=== PATIENT | female | born 1965 | race Caucasian/White ===

== ENCOUNTER 2017-04-05 14:33 | Inpatient (IN) ==
[2017-04-05] MEDS ORDERED: AMMONIA AROMATIC INH ONE (14:51)
[2017-04-05] MEDS ORDERED: AMMONIA AROMATIC ONE (14:53)
[2017-04-05 15:50] LABS: MANUAL DIFF NEEDED? NO; URINE MICRO REVIEW NEEDED? NO; URINE SOURCE CATH
[2017-04-05 15:54] LABS: BASO% 0.4 % (0.0-0.8); EOS# 0.19 X1000 (0.0-0.7); EOS% 3.6 % (0.0-10.0); HEMATOCRIT 39.4 % (37.0-47.0); HEMOGLOBIN 13.5 g/dL (12.0-16.0); LYMPH# 1.36 X1000 (1.2-3.4); LYMPH% 25.7 % (20.5-51.1); MCH 28.5 PG (27-31); MCHC 34.3 g/dL (33-37); MCV 83.3 FL (81-99); MONO# 0.38 X1000 (0.11-0.59); MONO% 7.2 % (1.7-9.3); MPV 10.5 FL (7.4-10.4); NEUT% 63.1 % (42.2-75.2); PLT 200 X1000 (130-400); RBC 4.73 XMIL (4.2-5.4)
--- NOTE | 2017-04-05 15:54 | Diag Imaging Result Doc PS360 ---
EXAM: CHEST-PORTABLE HISTORY: AMS TECHNIQUE: Portable AP COMPARISON: 01/16/2017 FINDINGS: The lungs are well expanded. The heart is not enlarged. The vessels are not distended. No pneumonia. No pleural effusions identified. IMPRESSION: Negative chest. Follow-up films may be beneficial. Electronically signed by Ryan Dominique 04/05/2017 3:52 PM
[2017-04-05 15:55] LABS: ALLEN TEST YES; BE 0.7 mmoll (-3.0-3.0); BLOOD TYPE ARTERIAL; DRAW SITE R RADIAL; METHB 1.3 % (0.0-1.5); PCO2(98.6) 35 mmHg (35-45); PO2(98.6) 95 mmHg (60-100); SAMPLE BLOOD; THB 13.5 g/dL (11.5-17.4); pH(98.6) 7.45 (7.35-7.45)
[2017-04-05 15:56] LABS: BILIRUBIN URINE NEGATIVE (NEGATIVE); BLOOD URINE NEGATIVE (NEGATIVE); COLOR YELLOW; GLUCOSE URINE NEGATIVE (NEGATIVE); LEUKOCYTES URINE TRACE (NEGATIVE); NITRITE URINE NEGATIVE (NEGATIVE); PROTEIN URINE TRACE mg/dL (NEGATIVE); SP GRAVITY URINE 1.017; TURBIDITY URINE CLEAR (CLEAR); UR EPITHELIAL CELLS <10 /HPF (<10); URINE BACTERIA NEGATIVE /HPF; URINE CULTURE NEEDED? YES; URINE RBC <10 /HPF (<10); URINE WBC <10 /HPF (<10); UROBILINOGEN URINE 2 mg/dL (NORMAL)
[2017-04-05 15:56] LABS: MODALITY ROOM AIR
[2017-04-05 16:04] LABS: INR 0.98; PROTIME 10.3 Seconds (9.2-11.7)
[2017-04-05 16:07] LABS: UR AMPHETAMINES QUAL PRESUMPTIVE POSITIVE (NONE DETECT); UR BARBITUATES QUAL NONE DETECTED (NONE DETECT); UR BENZODIAZEPIN QUAL PRESUMPTIVE POSITIVE (NONE DETECT); UR CANNABINOIDS QUAL PRESUMPTIVE POSITIVE (NONE DETECT); UR COCAINE QUAL NONE DETECTED (NONE DETECT); UR METHADONE QUAL NONE DETECTED (NONE DETECT); UR OPIATES QUAL NONE DETECTED (NONE DETECT); UR OXYCODONE QUAL NONE DETECTED (NONE DETECT); UR PCP QUAL NONE DETECTED (NONE DETECT)
[2017-04-05 16:10] LABS: ALBUMIN 4.1 g/dL (3.5-5.0); CALCIUM 8.9 mg/dL (8.8-10.2); POTASSIUM 3.6 mmol/L (3.5-5.1); TOTAL BILIRUBIN 0.23 mg/dL (0.20-1.00); TOTAL PROTEIN 6.9 g/dL (6.3-8.3)
--- NOTE | 2017-04-05 16:50 | Diag Imaging Result Doc PS360 ---
EXAM: CT HEAD WITHOUT HISTORY: Altered mental status TECHNIQUE: CT brain without contrast. Dose reduction protocol. COMPARISON: None. FINDINGS: No parenchymal hemorrhage. No epidural or subdural hematoma. No subarachnoid hemorrhage. No mass identified on this noncontrasted exam. No hydrocephalus. No sinus opacification. IMPRESSION: No hemorrhage. Negative brain CT without contrast. Electronically signed by Ryan Dominique 04/05/2017 4:47 PM
--- NOTE | 2017-04-05 17:02 | PROVIDER DOCUMENTATION ---
This chart was entered by Sarahy Johnson Scribe, acting as scribe for Wilmar Crenshaw MD. HPI-Neurological Disorder - General Stated Complaint: WEAKNESS Time Seen by Provider: 04/05/17 14:55 Source: patient Allergies/Adverse Reactions: Patient Allergies Allergy/AdvReac Type Severity Reaction Status Date / Time cat dander Allergy ITCHING Verified 04/05/17 16:08 Sulfa (Sulfonamide Allergy SHORTNESS Verified 04/05/17 16:08 Antibiotics) OF BREATH Home Medications: Home Medication List Medication Instructions Recorded Confirmed Last Taken Type Albuterol Sulfate [Proair Hfa] 8.5 gm IH Q4-6H PRN PRN #1 09/18/16 04/05/17 Unknown Rx hfa.[email or web address].[email or web address] Gabapentin 600 mg PO DAILY 01/16/17 04/05/17 04/05/17 History Lorazepam [Ativan] 0.5 mg PO BID #20 tablet 01/16/17 04/05/17 Unknown Rx LISINOpril [Prinivil] 20 mg PO DAILY 01/21/17 04/05/17 04/05/17 History - History of Present Illness-Neuro Nature of Presenting Problem: Pt is 51 y/o F presents to the ED via EMS with altered mental status. Pt's friend states Pt was fine this am and took 2 nexium then started to feel funny and tingling all over her body. 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 Pt's friend states Pt was talking prior to entering the room and then Pt became unresponsive. Pt came to shortly with ammonia capsule. Pt's friend states Pt drank vodka last night. Headache Location: denies: frontal, temporal, occipital, parietal, global Severity: reports: moderate Onset/Duration: reports: abrupt Timing: reports: still present Context: reports: other (AMS) Character of Altered Mental Status: reports: unresponsive Any recent trauma/injury?: reports: none Character of Deficits: denies: new weakness, altered sensation, vision problem/ glaucoma, impaired speech, impaired swallowing, decreased ability to stand, decreased ability to walk, falling New weakness or altered sensation location:: reports: general (diffuse) Cognitive Baseline: alert, oriented x3 Gait Baseline: walks without assistance Associated Symptoms: reports: other (tingling in all ext.). denies: short of breath, headache, decreased ability to walk or stand, fainting, dizziness, confusion, chest pain, neck/back pain, fatigue, fever/chills, insomnia, loss of consciousness, muscle spasms, nausea, numbness in legs/feet, paresthesia, diaphoretic, ringing in ears, seizures, sleepy, slurred speech, tingling in legs /feet, trouble walking, vomiting, vision changes, weakness Similar Symptoms Previously?: No Recently seen or treated by another doctor?: No Review of Systems - Adult - REVIEW OF SYSTEMS - ADULT Constitutional: denies: chills, fever Eyes: denies: blurred vision, double vision Ears, Nose, Mouth & Throat: denies: ear pain, nose pain, throat pain Cardiovascular: denies: chest pain, heart murmur, irregular heart rate Respiratory: denies: cough, shortness of breath, wheezing Gastrointestinal: denies: abdominal pain, diarrhea, nausea, vomiting Genitourinary: denies: dysuria, hematuria, urgency Musculoskeletal: denies: bone pain, joint pain, neck pain Integumentary: denies: hives, itching, rash Neurological: reports: other (AMS and tingle in all ext.). denies: dizziness/ vertigo, headache/migraines, numbness, seizure, syncope Psychiatric: denies: anxiety, depression, suicidal thoughts Endocrine: reports: no symptoms reported Hematologic/Lymphatic: reports: no symptoms reported Allergic/Immunologic: reports: no symptoms reported All Other Systems: Reviewed and Negative Past History - Adult - PAST MEDICAL HISTORY-ADULT Review of Records: reports: Nursing Assessment Review, Medications Reviewed, Social history reviewed & non-contributory. Major Childhood Illnesses: reports: denies history Cardiovascular: reports: HTN Respiratory: reports: asthma, COPD Gastrointestinal: reports: denies history Obstetrical/Gynecological: reports: denies history Genitourinary: reports: denies history Musculoskeletal: reports: denies history Neurological: reports: denies history Psychiatric: reports: depression Endocrine/Immune: reports: denies history Other Conditions: reports: denies history - PRIOR SURGERIES/PROCEDURES Surgical/Procedure History: reports: hysterectomy, - IMMUNIZATION STATUS Childhood Immunizations: See Nurse Assessment Flu Vaccine: See Nurse Assessment - FAMILY HISTORY Family History: reviewed, not pertinent - SOCIAL HISTORY Smoking: cigarettes, less than 1 pack/day Provider spent 3-5 mins advising pt. on dangers of tobacco.: Discussed manners to quit use, and f/u contacts for add'l counseling. Substance Use: alcohol, other (oxycodone) Alcohol Use Frequency: occasionally Number of drinks per typical drinking period:: 2 drinks Living Situation: family Physical Exam- Neurological - Physical Exam-Neuro General Appearance: no apparent distress, lethargic, other (unresponsive) Eye Exam: bilateral eye: normal inspection, PERRL, EOMI HENMT: normocephalic/atraumatic, moist mucous membranes, normal ENT inspection Head Injury: no evidence of injury Neck: normal inspection Respiratory: chest non-tender, lungs clear, normal breath sounds Cardiovascular: normal peripheral pulses, regular rate, rhythm Abdominal Exam: normal bowel sounds, soft. negative: distended, hernia Lymphatic: no adenopathy. negative: enlargement, streaking Extremity: normal inspection. 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 Exam: other (unable to assess per condition) Coordination/Gait: other (unable to assess per condition) Neurologic: other (unresponsive) Integumentary: normal color, normal turgor, warm/dry Psych/Mental Status: other (unable to assess per condition) Progress - PLAN OF CARE/RESULTS Progress/Plan/Lab Results: Vital Signs - 8 hr 04/05/17 14:33 04/05/17 14:56 04/05/17 16:00 Temperature 98.7 F 98.0 F Pulse Rate 118 H 118 H 92 H Respiratory Rate 20 14 14 Blood Pressure 162/92 130/90 146/99 O2 Sat by Pulse Oximetry 100 100 99 Laboratory Results - last 24 hr 04/05/17 04/05/17 04/05/17 15:15 15:15 15:15 WBC 5.30 RBC 4.73 Hgb 13.5 Hct 39.4 MCV 83.3 MCH 28.5 MCHC 34.3 RDW Std Deviation 12.5 Plt Count 200 MPV 10.5 H Immature Gran % (Auto) 0.0 Neut % (Auto) 63.1 Lymph % (Auto) 25.7 [place] % (Auto) 7.2 Eos % (Auto) 3.6 Baso % (Auto) 0.4 Immature Gran # (Auto) 0.00 Neut # (Auto) 3.35 Lymph # (Auto) 1.36 [place] # (Auto) 0.38 Eos # (Auto) 0.19 Baso # (Auto) 0.02 PT INR PTT (Actin FS) Specimen Type Sample Site pH pCO2 pO2 HCO3 Base Excess Oxyhemoglobin ABG O2 Sat (Calculated) ABG O2 Saturation ABG Carboxyhemoglobin ABG Methemoglobin Harman Test A-a O2 Difference Total Hemoglobin Lactate Blood Gas Modality FiO2 % Sodium 138 Potassium 3.6 Chloride 103 Carbon Dioxide 22 L Anion Gap 13 BUN 6 L Creatinine 1.0 H Estimated GFR/1.73 m2 59 BUN/Creatinine Ratio 6 Glucose 117 H Calculated Osmolality 274 Calcium 8.9 Total Bilirubin 0.23 AST 41 H ALT 60 H Alkaline Phosphatase 78 Creatine Kinase 63 Troponin T Total Protein 6.9 Albumin 4.1 Globulin 2.8 Albumin/Globulin Ratio 1.5 Plasma Lactate Urine Source Urine Color Urine Turbidity Urine pH Ur Specific [place] Urine Protein Ur Glucose (Stick) Ur Ketones (Stick) Urine Blood Urine Nitrite Urine Bilirubin Urobilinogen Dipstick Urine Leukocytes Urine WBC (Auto) Urine RBC (Auto) U Epithel Cells (Auto) Urine Bacteria (Auto) Urine Opiates Screen Ur Oxycodone Screen Ur Methadone, Qual Ur Barbiturates Screen Ur Phencyclidine Scrn Ur Amphetamines Screen U Benzodiazepines Scrn Urine Cocaine Screen U Cannabinoids Screen Plasma/Serum Ethyl Alc 04/05/17 04/05/17 04/05/17 15:15 15:15 15:15 WBC RBC Hgb Hct MCV MCH MCHC RDW Std Deviation Plt Count MPV Immature Gran % (Auto) Neut % (Auto) Lymph % (Auto) [place] % (Auto) Eos % (Auto) Baso % (Auto) Immature Gran # (Auto) Neut # (Auto) Lymph # (Auto) [place] # (Auto) Eos # (Auto) Baso # (Auto) PT 10.3 INR 0.98 PTT (Actin FS) 27.0 Specimen Type Sample Site pH pCO2 pO2 HCO3 Base Excess Oxyhemoglobin ABG O2 Sat (Calculated) ABG O2 Saturation ABG Carboxyhemoglobin ABG Methemoglobin [place] Test A-a O2 Difference Total Hemoglobin Lactate Blood Gas Modality FiO2 % Sodium Potassium Chloride Carbon Dioxide Anion Gap BUN Creatinine Estimated GFR/1.73 m2 BUN/Creatinine Ratio Glucose Calculated Osmolality Calcium Total Bilirubin AST ALT Alkaline Phosphatase Creatine Kinase Troponin T < 0.010 Total Protein Albumin Globulin Albumin/Globulin Ratio Plasma Lactate Urine Source CATH Urine Color YELLOW Urine Turbidity CLEAR Urine pH 6.0 Ur Specific [place] 1.017 Urine Protein TRACE A Ur Glucose (Stick) NEGATIVE Ur Ketones (Stick) NEGATIVE Urine Blood NEGATIVE Urine Nitrite NEGATIVE Urine Bilirubin NEGATIVE Urobilinogen Dipstick 2 A Urine Leukocytes TRACE A Urine WBC (Auto) <10 Urine RBC (Auto) <10 U Epithel Cells (Auto) <10 Urine Bacteria (Auto) NEGATIVE Urine Opiates Screen Ur Oxycodone Screen Ur Methadone, Qual Ur Barbiturates Screen Ur Phencyclidine Scrn Ur Amphetamines Screen U Benzodiazepines Scrn Urine Cocaine Screen U Cannabinoids Screen Plasma/Serum Ethyl Alc 04/05/17 04/05/17 04/05/17 15:15 15:42 15:45 WBC RBC Hgb Hct MCV MCH MCHC RDW Std Deviation Plt Count MPV Immature Gran % (Auto) Neut % (Auto) Lymph % (Auto) [place] % (Auto) Eos % (Auto) Baso % (Auto) Immature Gran # (Auto) Neut # (Auto) Lymph # (Auto) [place] # (Auto) Eos # (Auto) Baso # (Auto) PT INR PTT (Actin FS) Specimen Type ARTERIAL Sample Site R RADIAL pH 7.45 pCO2 35 pO2 95 HCO3 25.4 Base Excess 0.7 Oxyhemoglobin 94.3 L ABG O2 Sat (Calculated) 18.0 ABG O2 Saturation 99.0 ABG Carboxyhemoglobin 3.40 H ABG Methemoglobin 1.3 Harman Test YES A-a O2 Difference 11.0 Total Hemoglobin 13.5 Lactate 1.00 Blood Gas Modality ROOM AIR FiO2 % 21.0 Sodium Potassium Chloride Carbon Dioxide Anion Gap BUN Creatinine Estimated GFR/1.73 m2 BUN/Creatinine Ratio Glucose Calculated Osmolality Calcium Total Bilirubin AST ALT Alkaline Phosphatase Creatine Kinase Troponin T Total Protein Albumin Globulin Albumin/Globulin Ratio Plasma Lactate 1.6 Urine Source Urine Color Urine Turbidity Urine pH Ur Specific [place] Urine Protein Ur Glucose (Stick) Ur Ketones (Stick) Urine Blood Urine Nitrite Urine Bilirubin Urobilinogen Dipstick Urine Leukocytes Urine WBC (Auto) Urine RBC (Auto) U Epithel Cells (Auto) Urine Bacteria (Auto) Urine Opiates Screen NONE DETECTED Ur Oxycodone Screen NONE DETECTED Ur Methadone, Qual NONE DETECTED Ur Barbiturates Screen NONE DETECTED Ur Phencyclidine Scrn NONE DETECTED Ur Amphetamines Screen PRESUMPTIVE POSITIVE A U Benzodiazepines Scrn PRESUMPTIVE POSITIVE A Urine Cocaine Screen NONE DETECTED U Cannabinoids Screen PRESUMPTIVE POSITIVE A Plasma/Serum Ethyl Alc Orders Category Date Time Status Cardiac Monitoring DIRECTED Care 04/05/17 14:59 Active Finger Stick Blood Sugar (ED) DIRECTED Care 04/05/17 14:59 Active Oxygen Therapy- ED Nursing DIRECTED Care 04/05/17 14:59 Active Saline Loc NOW Care 04/05/17 14:59 Active CHEST-PORTABLE [RAD] Stat Exams 04/05/17 14:59 Completed HEAD W/O CONTRAST [CT] Stat Exams 04/05/17 16:31 Completed ABG [RESP] Routine Lab 04/05/17 15:45 Completed ALCOHOL BLOOD Stat Lab 04/05/17 15:15 Completed CBC WITH ELECTRONIC DIFF [HEME] Stat Lab 04/05/17 15:15 Completed CK PROFILE [SP CHEM] Stat Lab 04/05/17 15:15 Completed COMPREHENSIVE METABOLIC PANEL [CHEM] Stat Lab 04/05/17 15:15 Completed LACTATE, PLASMA [CHEM] Stat Lab 04/05/17 15:42 Completed PROTIME WITH INR [COAG] Stat Lab 04/05/17 15:15 Completed PTT [COAG] Stat Lab 04/05/17 15:15 Completed TROPONIN T Stat Lab 04/05/17 15:15 Completed URINALYSIS W/POSS RFLX CULT-1 [URINALYSIS] Stat Lab 04/05/17 15:15 Completed URINE CULTURE [RM] Routine Lab 04/05/17 16:32 Received URINE DRUG SCREEN Stat Lab 04/05/17 15:15 Completed Ammonia, Aromatic [Ammonia Aromatic] Med 04/05/17 14:53 Discontinued 1 each .ROUTE .STK-MED ONE Ammonia, Aromatic [Ammonia Aromatic] Med 04/05/17 14:51 Discontinued 1 each INH NOW ONE Pulse Oximetry Stat Oth 04/05/17 14:59 Completed EKG [EKG] Stat Ther 04/05/17 14:59 Ordered Result Diagrams: 04/05/17 15:15 04/05/17 15:15 - REASSESSMENT Reassessment #1 Status: improving (pt is still responsive to stimulation but is avoiding talking or is recovering from an overdose of something) - EKG 1 Time of EKG reading by physician:: 15:51 EKG Read and Signed by:: Wilmar Crenshaw EKG Interpretation (*Must complete 3 of following elements*): Abnormal Rate: 115 Rhythm: sinus tachycardia Comments: otherwise normal ECG - XRAY 1 XRAY Study: Chest Impression: Normal XRAY Interpretation: negative chest - CONSULTS/PCP/HOSPITALIST Notification #1 *Consult/PCP/Hospitalist*: EBONY Weiss Time Discussed: 16:43 Reason/Comments: Dr. Crenshaw consulted with EBONY Weiss about Pt Consult Disposition: Admit Departure - Departure Date of Disposition Decision: 04/05/17 Time of Disposition Decision: 17:01 DIAGNOSIS: Overdose Qualifiers: Encounter type: initial encounter Injury intent: undetermined intent Qualified Code(s): T50.904A - Poisoning by unspecified drugs, medicaments and biological substances, undetermined, initial encounter Disposition: ADMITTED INPATIENT 09 Certified Medical Emergency: Emergent Condition: Stable Referrals and Follow-Ups: None,PCP [Primary Care Provider] - - Critical Care Note This patient required my direct & personal management of CC.: No Attestation - Physician/ CHRISTINA Attestation The physician spent face to face time with patient:: No Advanced Practice Provider documentation review:: Supervising physician onsite and consulted in the evaluation and care of this patient. The physician did not have a face to face encounter with the patient. This chart was documented by the indicated scribe, (Sarahy Johnson Scribe) and accurately reflects the services I performed and decisions made by me, Wilmar Crenshaw MD, as attested by the provider's signature.
--- NOTE | 2017-04-05 19:07 | HISTORY AND PHYSICAL ---
PRIMARY CARE PROVIDER: No one. CHIEF COMPLAINT: Anxiety attack and altered mental status. HISTORY OF PRESENT ILLNESS: Ms. Rui Barraza is a 51-year-old female with a medical history of bipolar disorder, not treated, anxiety/depression who has benzodiazepines prescribed to her, but also recreationally uses marijuana. The is at the bedside. He states he was unaware of her use of amphetamines. 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 He said yesterday that she was complaining some of abdominal pain and cramps, but was otherwise her usual self. Today she woke up with no issues and after lunch he states that she started having an anxiety attack. That is when they called 911. During her travel to [facility], she complained of a metallic taste in her mouth to the EMS. She was verbal, talking without difficulties. Upon arrival, she was nonverbal, closing her eyes, would not follow commands, but was aroused easily with a ammonia inhaler stick. Her pupils are equal and reactive. She does flutter her eyelids, but no deviation of the eyes. She will withdraw all extremities to pain stimuli, but still continues to not follow commands. We will admit to the ICU overnight to monitor closely. When questioning the about her home medications, he states that there were no extra medications missing and that she was not attempting suicide. We will likely need [facility] consult prior to discharge. PAST MEDICAL HISTORY: Anxiety/depression. Bipolar disorder. Hepatitis C. Hypertension. Asthma. Possible COPD. SURGICAL HISTORY: Hysterectomy. section. Left leg surgery. SOCIAL HISTORY: One pack per day smoker for 20+ years. Drinks alcohol 1-2 times per week and smokes marijuana about 2 times per week. FAMILY HISTORY: The states that she has no medical family history that he knows of. REVIEW OF SYSTEMS: Unable to obtain. ALLERGIES: Cat dander. Sulfa. HOME MEDICATIONS: Albuterol 8.5, inhaled every 4-6 hours p.r.n., gabapentin 600 mg p.o. daily, lisinopril 20 mg p.o. daily. Ativan 0.5 mg p.o. twice daily. PHYSICAL EXAMINATION: VITAL SIGNS: Temperature is 98 degrees, heart rate 84, respiratory rate 14, blood pressure 158/93, O2 saturation 98% on room air. 5 feet 9 inches tall, 170 pounds. BMI 25.1. GENERAL: Ms. Rui Barraza is a 51-year-old female, currently will not follow commands or answer questions HEENT: Atraumatic, normocephalic. Pupils equal, round, reactive to light. Will not participate in extraocular movement assessment. Mucous membranes are dry. Her eyelids flutter, but she does not have any deviation in gaze. No JVD or carotid bruits noted. CARDIOVASCULAR: S1, S2. Regular rate and rhythm. No rubs, gallops, murmurs. PULMONARY: Clear to auscultation. Bilateral breath sounds. No accessory muscle use or work of breathing noted. GI: Soft, nontender, nondistended. Positive bowel sounds x4. EXTREMITIES: +2 dorsalis pedal pulses. +2 radial pulses. No swelling or edema noted. Moves all extremities equally to pain stimuli with localizing to pain. NEUROLOGIC: Will not follow commands. Will not verbalize. Will not open eyes or focus. She will withdraw all extremities to pain and localize the pain. Pupils are equal and reactive. Eyelids flutter, but her eyes do not deviate in any direction. Face is symmetric. SKIN: Warm, dry, intact. LABORATORY DATA: White blood cells 5000, hemoglobin 13, hematocrit 39, platelet count 200,000. INR 0.98, PTT is 27. ABG on room air, pH 7.45, pCO2 35, PO2 95, bicarb 25, base excess 0.7. O2 saturation 94%. Lactate 1, sodium 138, potassium 3.6, BUN 6, creatinine 1, glucose 117. Calcium 8.9, bilirubin 0.23, AST 41, ALT 40, CK 63, troponins less than 0.01. Plasma lactate is 1.6. Urinalysis: Trace protein, trace leukocytes, otherwise negative. Urine drug screen positive for amphetamines, positive for benzodiazepines and positive for cannabinoids. Alcohol level 0. IMAGING: Head CT, no hemorrhage. No acute findings. Chest x-ray negative for acute findings. ASSESSMENT AND PLAN: 1. Untreated bipolar disorder and recent anxiety attack. She was found to have polysubstances in her system. She is currently not speaking or following commands at this time. She will likely need [facility] consult. 2. Toxic encephalopathy. Again, patient will not speak or follow commands. We will monitor throughout the night. Give some light IV fluid hydration. 3. Hypertension. Continue home medications. 4. Asthma. Chronic obstructive pulmonary disease. Continue home medications. 5. History of hepatitis C with mild transaminitis. 6. Tobacco abuse. We will discuss cessation when patient wakes. 7. Polysubstance abuse found in the urine drug screen. 8. Deep venous thrombosis prophylaxis. SCDs. Dictated by EBONY Diaz for Rishabh Barrera MD cc: EBONY Diaz MD pt examined, agree with above APenot MTDD
[2017-04-05] MEDS ORDERED: NS 1,000 ML IV SCH (20:06)
[2017-04-05] MEDS ORDERED: VENTOLIN HFA INH PRN (20:06)
[2017-04-06] MEDS ORDERED: TYLENOL PO ONE (04:30)
[2017-04-06 04:51] LABS: MANUAL DIFF NEEDED? NO
[2017-04-06 04:54] LABS: BASO% 0.2 % (0.0-0.8); EOS# 0.24 X1000 (0.0-0.7); EOS% 4.5 % (0.0-10.0); HEMOGLOBIN 12.4 g/dL (12.0-16.0); LYMPH# 2.01 X1000 (1.2-3.4); LYMPH% 37.9 % (20.5-51.1); MCH 28.8 PG (27-31); MCHC 34.4 g/dL (33-37); MCV 83.5 FL (81-99); MONO% 5.7 % (1.7-9.3); MPV 10.6 FL (7.4-10.4); NEUT% 51.7 % (42.2-75.2); PLT 179 X1000 (130-400); RBC 4.31 XMIL (4.2-5.4)
[2017-04-06 05:03] LABS: INR 1.03; PROTIME 10.8 Seconds (9.2-11.7); PTT 27.3 Seconds (22.0-36.0)
[2017-04-06 05:21] LABS: AGAP 12; ALBUMIN 3.7 g/dL (3.5-5.0); ALKALINE PHOSPHATASE 66 U/L (32-104); BUN 6 mg/dL (8-22); CALCIUM 8.9 mg/dL (8.8-10.2); CHLORIDE 106 mmol/L (98-107); COSMO 278; GOT 35 U/L (10-30); GPT 50 U/L (10-36); MAGNESIUM 1.7 mg/dL (1.5-2.7); POTASSIUM 3.3 mmol/L (3.5-5.1); SODIUM 141 mmol/L (136-145); TCO2 23 mmol/L (25-35); TOTAL BILIRUBIN 0.44 mg/dL (0.20-1.00); TOTAL PROTEIN 5.8 g/dL (6.3-8.3)
--- NOTE | 2017-04-06 07:36 | EKG Report ---
Test Performed on : 04/06/2017 06:22:09 AM Test Reason : chest pain Blood Pressure : / mmHG Vent. Rate : 072 BPM Atrial Rate : 072 BPM P-R Int : 184 ms QRS Dur : 076 ms QT Int : 416 ms P-R-T Axes : 059 014 053 degrees QTc Int : 455 ms Normal sinus rhythm. Normal ECG When compared with ECG of 05-APR-2017 15:51, (Unconfirmed) Vent. rate has decreased BY 43 BPM Confirmed by Nabeel Delcid DO ([id number]) on 04/07/2017 1:30:55 PM
[2017-04-06] MEDS ORDERED: PRINIVIL PO SCH (09:00)
[2017-04-06] MEDS ORDERED: TORADOL IV ONE (11:19)
[2017-04-06] MEDS ORDERED: MAXALT PO ONE (11:19)
[2017-04-06 12:16] VITALS: BP 137/83
--- NOTE | 2017-04-06 16:33 | DISCHARGE SUMMARY ---
ADMISSION DATE: 04/05/2017 DISCHARGE DATE: 04/06/2017 DISCHARGE DIAGNOSES: 1. Drug overdose. Unintentional. 2. History of depression but without suicidal ideation. HISTORY/HOSPITAL COURSE: Briefly, this is a 51-year-old female, reported history of bipolar. She states that is just depression not bipolar. She is not on medications for that but she came in with diminished responsiveness, nonverbal initially. She has been taking her regular medications. Reportedly did not overdose but she has also been taking Adderall. I think that has not been prescribed for her. She was initially again very minimally responsive. She responded to ammonia salts and within a couple hours I think she started waking up. She denied any suicidal ideation. She denied any drug overdose history. Per her , she has been working extensively like double shifts and she has been taking the Adderall to help her stay awake so she can maintain an awake state for work and other things. In any case, she was admitted, placed in ICU for observation and had no major issues previously. She does have a history of hepatitis C and she was monitored. The following day, she was awake, alert. She was able to ambulate. She had no major complaints except for a severe headache. She was given treatment for that and felt stable for discharge. Again she denied suicidal ideation. This was not an intentional drug interaction overdose. She declined evaluation by Steve and was felt stable for discharge. DISCHARGE MEDICATIONS: Albuterol, gabapentin 600 daily, lisinopril 20 daily, Ativan 0.5 b.i.d. DISCHARGE INSTRUCTIONS: She will need to be given outpatient PCP to follow up with and the mental health center to follow up with for depression. cc: Rishabh Barrera MD
== END 2017-04-06 12:48 | disposition home or self-care (01) ==
LOC: ED 14:33 → ICU 19:33
PROVIDERS: ATTEND Internal Medicine

== ENCOUNTER 2019-04-30 19:31 | Inpatient (IN) ==
[2019-04-30] MEDS ORDERED: NS 2,000 ML IV ONE ×2 (20:20→22:22)
--- NOTE | 2019-04-30 20:27 | PROVIDER DOCUMENTATION ---
HPI-Syncope/Dizziness - General Chief Complaint: Heat Related Stated Complaint: SYNCOPE Time Seen by Provider: 04/30/19 20:06 Source: patient, family Allergies/Adverse Reactions: Patient Allergies Allergy/AdvReac Type Severity Reaction Status Date / Time cat dander Allergy Intermediate ITCHING Verified 04/30/19 22:54 Sulfa (Sulfonamide Allergy Intermediate "HOT Verified 04/30/19 22:54 Antibiotics) FLASHES" Home Medications: Home Medication List Medication Instructions Recorded Confirmed Last Taken Type LISINOpril [Prinivil] 20 mg PO DAILY #90 tab 02/14/18 04/30/19 07/29/18 Rx Albuterol Sulfate [Proair Hfa] 2 puff IH Q4-6H PRN PRN #1 03/01/18 04/30/19 Unknown Rx [email or web address] Escitalopram Oxalate [Lexapro] 10 mg PO DAILY #30 tab 02/28/19 04/30/19 Unknown Rx Lorazepam 0.5 mg PO BID 04/30/19 04/30/19 Unknown History Promethazine HCl [Phenadoz] 25 mg RC PRN PRN 04/30/19 04/30/19 Unknown History - History of Present Illness-Syncope/Dizzy Nature of Presenting Problem: 53 YO F presents with c/o episode of syncope ealier today about 4 hours ago while outside doing yard work. She denies hitting her head or any pain. She states she feels weak all over. Her was with her at the time and took her inside and gave her a bath, but she states she still feels bad. She also endorses dealing with alot of stress lately. She has a hx of drug abuse and Hep C. She states with the recent stressors she has been using oxycodone 20 and 30mg lately. repeat BP at 82/68 in triage by manual BP If witnessed syncope, by whom?: Prior Episodes: reports: no prior history Onset/Duration: reports: 4-6 hours ago Timing: reports: gone now Position/Activity at time of episode: reports: activity (working in the yard) Symptoms prior to episode: reports: lightheaded, diaphoresis. denies: nausea/vomiting, abdominal pain, confusion Context: reports: lost consciousness, collapsed, felt faint Loss of Consciousness: brief (seconds) Location of injury. (If syncope resulted in an injury.): reports: none Current Symptoms: reports: sweaty, short of breath, nausea, weakness, lightheaded, dizzy - Dizziness Severity in ED: reports: mild Dizziness Related Current/Associated Symptoms: reports: weakness, lightheaded, dizzy. denies: blurred vision Modifying Factors: improves with: nothing Review of Systems - Adult - REVIEW OF SYSTEMS - ADULT Constitutional: denies: chills, fever Eyes: reports: no symptoms reported Ears, Nose, Mouth & Throat: reports: no symptoms reported Cardiovascular: reports: no symptoms reported Respiratory: reports: see HPI Gastrointestinal: reports: see HPI, nausea Genitourinary: reports: no symptoms reported Musculoskeletal: reports: see HPI Integumentary: reports: no symptoms reported Neurological: reports: dizziness/vertigo, syncope. denies: seizure Psychiatric: reports: anxiety, alcohol/drug dependence, depression, emotional problems. denies: suicidal thoughts Endocrine: reports: no symptoms reported Hematologic/Lymphatic: reports: no symptoms reported Allergic/Immunologic: reports: no symptoms reported Past History - Adult - PAST MEDICAL HISTORY-ADULT Review of Records: reports: Old Records Reviewed, Nursing Assessment Review, Medications Reviewed Major Childhood Illnesses: reports: denies history Cardiovascular: reports: HTN Respiratory: reports: asthma, COPD Gastrointestinal: reports: denies history Obstetrical/Gynecological: reports: denies history Genitourinary: reports: denies history Musculoskeletal: reports: denies history Neurological: reports: denies history Psychiatric: reports: anxiety, depression, suicide attempt Endocrine/Immune: reports: denies history Other Conditions: reports: denies history - PRIOR SURGERIES/PROCEDURES Surgical/Procedure History: reports: hysterectomy, - IMMUNIZATION STATUS Childhood Immunizations: See Nurse Assessment Flu Vaccine: See Nurse Assessment - FAMILY HISTORY Family History: reviewed, not pertinent - SOCIAL HISTORY Smoking: cigarettes Substance Use: opiates Living Situation: family Physical Exam-General - PHYSICAL EXAM-ADULT Initial Vital Signs Reviewed: Yes (repeat BP manually at 82/68) - CONSTITUTIONAL General Appearance: alert, anxious - EYES Eyes: PERRL/EOMI, pink conjunctivae - HEAD, EARS, NOSE, MOUTH & THROAT HENMT: normocephalic/atraumatic, moist mucous membranes - NECK Neck: non-tender, full range of motion, supple, normal inspection - RESPIRATORY Respiratory: chest non-tender, lungs clear, normal breath sounds - CARDIOVASCULAR Cardiovascular: regular rate, rhythm - GASTROINTESTINAL (ABDOMEN) Abdominal Exam: normal bowel sounds, non tender, soft - MUSCULOSKELETAL Back Exam: normal inspection, no CVA tenderness, no vertebral tenderness Extremity: normal range of motion, normal inspection - SKIN Integumentary: normal turgor, warm/dry. negative: ecchymosis, erythema, s welling, tenderness, warm - NEUROLOGIC Neurologic: grossly normal, no motor/sensory deficits. negative: abnormal gait, facial droop, focal weakness, motor weakness, sensory deficit - PSYCHIATRIC Psych/Mental Status: oriented x 3, anxious, tearful Progress - PLAN OF CARE/RESULTS Progress/Plan/Lab Results: Vital Signs - 8 hr 04/30/19 19:49 04/30/19 20:34 04/30/19 20:49 Temperature 97.5 F L Pulse Rate 98 H 84 85 Respiratory Rate 20 15 15 Blood Pressure 74/55 72/39 77/56 O2 Sat by Pulse Oximetry 99 95 97 04/30/19 21:03 04/30/19 21:17 04/30/19 21:23 Temperature Pulse Rate 85 81 80 Respiratory Rate 19 13 14 Blood Pressure 100/65 81/58 108/54 O2 Sat by Pulse Oximetry 99 99 96 04/30/19 21:33 04/30/19 21:43 04/30/19 21:53 Temperature Pulse Rate 75 86 Respiratory Rate 18 17 Blood Pressure 100/56 99/67 104/65 O2 Sat by Pulse Oximetry 99 99 97 04/30/19 22:03 04/30/19 22:13 04/30/19 22:23 Temperature Pulse Rate 78 79 78 Respiratory Rate 17 19 19 Blood Pressure 111/57 104/61 102/49 O2 Sat by Pulse Oximetry 97 97 98 04/30/19 22:42 04/30/19 22:53 04/30/19 23:03 Temperature Pulse Rate 75 72 Respiratory Rate 12 Blood Pressure 80/58 97/55 102/57 O2 Sat by Pulse Oximetry 96 94 L 97 04/30/19 23:23 04/30/19 23:33 04/30/19 23:43 Temperature Pulse Rate 78 73 74 Respiratory Rate 18 16 19 Blood Pressure 100/66 88/57 90/62 O2 Sat by Pulse Oximetry 95 95 94 L 04/30/19 23:53 Temperature Pulse Rate 75 Respiratory Rate 16 Blood Pressure 93/60 O2 Sat by Pulse Oximetry 96 Laboratory Results - last 24 hr 04/30/19 04/30/19 04/30/19 20:39 20:39 20:39 WBC 10.30 RBC 5.38 Hgb 15.2 Hct 44.6 MCV 82.9 MCH 28.3 MCHC 34.1 RDW Std Deviation 13.3 Plt Count 253 MPV 10.0 Immature Gran % (Auto) 0.4 Neut % (Auto) 70.7 Lymph % (Auto) 19.7 L [place] % (Auto) 7.4 Eos % (Auto) 1.6 Baso % (Auto) 0.2 Immature Gran # (Auto) 0.04 Neut # (Auto) 7.29 H Lymph # (Auto) 2.03 [place] # (Auto) 0.76 H Eos # (Auto) 0.16 Baso # (Auto) 0.02 Sodium Potassium Chloride Carbon Dioxide Anion Gap BUN Creatinine Estimated GFR/1.73 m2 BUN/Creatinine Ratio Glucose Calculated Osmolality Calcium Total Bilirubin AST ALT Alkaline Phosphatase Creatine Kinase 237 H Creatine Kinase Index 8.4 H CK-MB (CK-2) 19.99 H Troponin T 1.190 H* Total Protein Albumin Globulin Albumin/Globulin Ratio TSH Urine Source Urine Color Urine Turbidity Urine pH Ur Specific [place] Urine Protein Ur Glucose (Stick) Ur Ketones (Stick) Urine Blood Urine Nitrite Urine Bilirubin Urobilinogen Dipstick Urine Leukocytes Urine WBC (Auto) Urine RBC (Auto) U Epithel Cells (Auto) Urine Bacteria (Auto) Urine Crystals Small Round Cells Urine Casts Urine Yeast-like Cells Urine Opiates Screen Ur Oxycodone Screen Ur Methadone, Qual Ur Barbiturates Screen Ur Phencyclidine Scrn Ur Amphetamines Screen U Benzodiazepines Scrn Urine Cocaine Screen U Cannabinoids Screen Plasma/Serum Ethyl Alc 04/30/19 04/30/19 04/30/19 20:39 20:39 20:39 WBC RBC Hgb Hct MCV MCH MCHC RDW Std Deviation Plt Count MPV Immature Gran % (Auto) Neut % (Auto) Lymph % (Auto) [place] % (Auto) Eos % (Auto) Baso % (Auto) Immature Gran # (Auto) Neut # (Auto) Lymph # (Auto) [place] # (Auto) Eos # (Auto) Baso # (Auto) Sodium 138 Potassium 4.9 Chloride 97 L Carbon Dioxide 22 L Anion Gap 19 BUN 38 H Creatinine 2.3 H Estimated GFR/1.73 m2 22 BUN/Creatinine Ratio 17 Glucose 100 Calculated Osmolality 285 Calcium 9.8 Total Bilirubin 0.37 AST 53 H ALT 51 H Alkaline Phosphatase 119 H Creatine Kinase Creatine Kinase Index CK-MB (CK-2) Troponin T Total Protein 8.5 H Albumin 5.0 Globulin 3.5 Albumin/Globulin Ratio 1.4 TSH 3.53 Urine Source Urine Color Urine Turbidity Urine pH Ur Specific [place] Urine Protein Ur Glucose (Stick) Ur Ketones (Stick) Urine Blood Urine Nitrite Urine Bilirubin Urobilinogen Dipstick Urine Leukocytes Urine WBC (Auto) Urine RBC (Auto) U Epithel Cells (Auto) Urine Bacteria (Auto) Urine Crystals Small Round Cells Urine Casts Urine Yeast-like Cells Urine Opiates Screen Ur Oxycodone Screen Ur Methadone, Qual Ur Barbiturates Screen Ur Phencyclidine Scrn Ur Amphetamines Screen U Benzodiazepines Scrn Urine Cocaine Screen U Cannabinoids Screen Plasma/Serum Ethyl Alc 04/30/19 04/30/19 04/30/19 22:44 22:44 23:29 WBC RBC Hgb Hct MCV MCH MCHC RDW Std Deviation Plt Count MPV Immature Gran % (Auto) Neut % (Auto) Lymph % (Auto) [place] % (Auto) Eos % (Auto) Baso % (Auto) Immature Gran # (Auto) Neut # (Auto) Lymph # (Auto) [place] # (Auto) Eos # (Auto) Baso # (Auto) Sodium Potassium Chloride Carbon Dioxide Anion Gap BUN Creatinine Estimated GFR/1.73 m2 BUN/Creatinine Ratio Glucose Calculated Osmolality Calcium Total Bilirubin AST ALT Alkaline Phosphatase Creatine Kinase Creatine Kinase Index CK-MB (CK-2) Troponin T 0.604 H* Total Protein Albumin Globulin Albumin/Globulin Ratio TSH Urine Source CLEAN CATCH Urine Color YELLOW Urine Turbidity HAZY Urine pH 6.5 Ur Specific [place] 1.010 Urine Protein 300 A Ur Glucose (Stick) NEGATIVE Ur Ketones (Stick) NEGATIVE Urine Blood TRACE A Urine Nitrite NEGATIVE Urine Bilirubin NEGATIVE Urobilinogen Dipstick NORMAL Urine Leukocytes NEGATIVE Urine WBC (Auto) TNTC A Urine RBC (Auto) <10 U Epithel Cells (Auto) <10 Urine Bacteria (Auto) NEGATIVE Urine Crystals NONE SEEN Small Round Cells NONE SEEN Urine Casts NONE SEEN Urine Yeast-like Cells NONE SEEN Urine Opiates Screen NONE DETECTED Ur Oxycodone Screen PRESUMPTIVE POSITIVE A Ur Methadone, Qual NONE DETECTED Ur Barbiturates Screen NONE DETECTED Ur Phencyclidine Scrn NONE DETECTED Ur Amphetamines Screen NONE DETECTED U Benzodiazepines Scrn NONE DETECTED Urine Cocaine Screen NONE DETECTED U Cannabinoids Screen NONE DETECTED Plasma/Serum Ethyl Alc 04/30/19 23:29 WBC RBC Hgb Hct MCV MCH MCHC RDW Std Deviation Plt Count MPV Immature Gran % (Auto) Neut % (Auto) Lymph % (Auto) [place] % (Auto) Eos % (Auto) Baso % (Auto) Immature Gran # (Auto) Neut # (Auto) Lymph # (Auto) [place] # (Auto) Eos # (Auto) Baso # (Auto) Sodium Potassium Chloride Carbon Dioxide Anion Gap BUN Creatinine Estimated GFR/1.73 m2 BUN/Creatinine Ratio Glucose Calculated Osmolality Calcium Total Bilirubin AST ALT Alkaline Phosphatase Creatine Kinase 227 H Creatine Kinase Index 8.0 H CK-MB (CK-2) 18.12 H Troponin T Total Protein Albumin Globulin Albumin/Globulin Ratio TSH Urine Source Urine Color Urine Turbidity Urine pH Ur Specific [place] Urine Protein Ur Glucose (Stick) Ur Ketones (Stick) Urine Blood Urine Nitrite Urine Bilirubin Urobilinogen Dipstick Urine Leukocytes Urine WBC (Auto) Urine RBC (Auto) U Epithel Cells (Auto) Urine Bacteria (Auto) Urine Crystals Small Round Cells Urine Casts Urine Yeast-like Cells Urine Opiates Screen Ur Oxycodone Screen Ur Methadone, Qual Ur Barbiturates Screen Ur Phencyclidine Scrn Ur Amphetamines Screen U Benzodiazepines Scrn Urine Cocaine Screen U Cannabinoids Screen Plasma/Serum Ethyl Alc Orders Category Date Time Status Repeat Vital Signs .Blood Pressure Care 04/30/19 21:13 Active ALCOHOL BLOOD Stat Lab 04/30/19 20:39 Completed CBC WITH ELECTRONIC DIFF [HEME] Stat Lab 04/30/19 20:39 Completed CK PROFILE [SP CHEM] Stat Lab 04/30/19 20:39 Completed CK PROFILE [SP CHEM] Stat Lab 04/30/19 23:29 Completed COMPREHENSIVE METABOLIC PANEL [CHEM] Stat Lab 04/30/19 20:39 Completed TROPONIN T Stat Lab 04/30/19 20:39 Completed TROPONIN T Stat Lab 04/30/19 23:29 Completed TSH Stat Lab 04/30/19 20:39 Completed URINALYSIS W/POSS RFLX CULT [URINALYSIS] Stat Lab 04/30/19 22:44 Completed URINE CULTURE [RM] Routine Lab 04/30/19 23:03 Received URINE DRUG SCREEN Stat Lab 04/30/19 22:44 Completed URINE MANUAL MICROSCOPIC [URINALYSIS] Stat Lab 04/30/19 22:44 Completed 0.9% Sodium Chloride Inj [Ns] 1,000 ml Med 05/01/19 01:00 Ordered IV 150 mls/hr 0.9% Sodium Chloride Inj [Ns] 2,000 ml Med 04/30/19 20:20 Discontinued IV 999 mls/hr 0.9% Sodium Chloride Inj [Ns] 2,000 ml Med 04/30/19 22:22 Discontinued IV 999 mls/hr Alprazolam [Xanax] Med 04/30/19 23:39 Discontinued 0.25 mg PO NOW ONE Aspirin Med 04/30/19 21:40 Discontinued 324 mg PO NOW ONE EKG [EKG] Stat Ther 04/30/19 20:20 Draft pt with JOSE and elevated trop. repeat trop trending down and CK trending down. pt received 4L fluids. Will continue with NS maintenance. Accepted by hospitalist. Result Diagrams: 04/30/19 20:39 04/30/19 20:39 - REASSESSMENT Reassessment #1 Time Reassessed: 21:41 Status: unchanged (labs reviewed. elevated trop, will trend, elevated creat, will cont with more fluids and trend CK.) Reassessment #2 Time Reassessed: 22:40 Status: improving (pt up and moving around. states she has to urinate. told pt about labs and needing more fluids. plan for admission.) Reassessment #3 Time Reassessed: 00:48 Status: improving (repeat trop at .60, trending down from 1.19) - EKG 1 Time of EKG reading by physician:: 20:55 EKG Read and Signed by:: Sukhjinder Uribe EKG Interpretation (*Must complete 3 of following elements*): Normal (regular rate and rhythm with possible left atrial enlargement, normal MN and QRS intervals) Rate: 79 Rhythm: NSR [place]: normal QRS: normal MN Interval: normal ST Wave: normal - CONSULTS/PCP/HOSPITALIST Notification #1 *Consult/PCP/Hospitalist*: Dr. Monique Time Discussed: 11:30 Consult Disposition: Will see in ED (Dr. Monique requested second trop. Discussed with Dr. Stubbs(cardiology also). second trop trending down. Dr. Monique now accepts patient for admission.) Departure - Departure Date of Disposition Decision: 05/01/19 Time of Disposition Decision: 00:50 DIAGNOSIS: Dehydration, JOSE (acute kidney injury), Elevated LFTs Disposition: ADMITTED INPATIENT 09 Certified Medical Emergency: Emergent Condition: Serious Referrals and Follow-Ups: None,PCP [NON-STAFF PROVIDER] - - Critical Care Note This patient required my direct & personal management of CC.: No Attestation - Physician/ CHRISTINA Attestation The physician spent face to face time with patient:: Yes Advanced Practice Provider documentation review:: Supervising physician onsite and consulted in the evaluation and care of this patient. The physician did have a face to face encounter with the patient.
[2019-04-30 20:58] LABS: BASO# 0.02 X1000 (0.0-0.2); BASO% 0.2 % (0.0-0.8); EOS# 0.16 X1000 (0.0-0.7); EOS% 1.6 % (0.0-10.0); HEMATOCRIT 44.6 % (37.0-47.0); HEMOGLOBIN 15.2 g/dL (12.0-16.0); IMM GRAN# 0.04 X1000 (0.0-0.04); IMM GRAN% 0.4 % (0.0-0.5); LYMPH# 2.03 X1000 (1.2-3.4); LYMPH% 19.7 % (20.5-51.1); MCH 28.3 PG (27-31); MCHC 34.1 g/dL (33-37); MCV 82.9 FL (81-99); MONO# 0.76 X1000 (0.11-0.59); MONO% 7.4 % (1.7-9.3); NEUT# 7.29 X1000 (1.4-6.5); NEUT% 70.7 % (42.2-75.2); PLT 253 X1000 (130-400); RBC 5.38 XMIL (4.2-5.4); RDW 13.3 % (11.5-14.5)
[2019-04-30 21:23] LABS: ALB/GLOB RATIO 1.4; CALCIUM 9.8 mg/dL (8.8-10.2); CREATININE 2.3 mg/dL (0.5-0.9); POTASSIUM 4.9 mmol/L (3.5-5.1); TOTAL BILIRUBIN 0.37 mg/dL (0.20-1.00); TOTAL PROTEIN 8.5 g/dL (6.3-8.3)
--- NOTE | 2019-04-30 21:28 | EKG Report ---
Test Performed on : 04/30/2019 8:53:19 PM Test Reason : SYNCOPE Blood Pressure : / mmHG Vent. Rate : 079 BPM Atrial Rate : 079 BPM P-R Int : 168 ms QRS Dur : 074 ms QT Int : 384 ms P-R-T Axes : 063 023 050 degrees QTc Int : 440 ms Normal sinus rhythm. Possible Left atrial enlargement Borderline ECG When compared with ECG of 12-APR-2019 14:10, (Unconfirmed) No significant change was found Unconfirmed Result
[2019-04-30 21:37] LABS: CK INDEX 8.4 (0.0-2.5); CK-MB 19.99 ng/mL (0.0-5.0)
[2019-04-30] MEDS ORDERED: ASPIRIN PO ONE (21:40)
[2019-04-30 22:49] LABS: URINE SOURCE CLEAN CATCH
[2019-04-30 22:53] LABS: BILIRUBIN URINE NEGATIVE (NEGATIVE); BLOOD URINE TRACE (NEGATIVE); COLOR YELLOW; GLUCOSE URINE NEGATIVE (NEGATIVE); KETONE URINE NEGATIVE (NEGATIVE); LEUKOCYTES URINE NEGATIVE (NEGATIVE); NITRITE URINE NEGATIVE (NEGATIVE); PH URINE 6.5; PROTEIN URINE 300 mg/dL (NEGATIVE); TURBIDITY URINE HAZY (CLEAR); UROBILINOGEN URINE NORMAL (NORMAL)
[2019-04-30 23:00] LABS: UR EPITHELIAL CELLS <10 /HPF (<10); URINE BACTERIA NEGATIVE /HPF; URINE RBC <10 /HPF (<10); URINE WBC TNTC /HPF (<10)
[2019-04-30 23:01] LABS: URINE CASTS NONE SEEN; URINE CRYSTALS NONE SEEN; URINE SMALL ROUND CELLS NONE SEEN; URINE YEAST NONE SEEN
[2019-04-30 23:02] LABS: UR AMPHETAMINES QUAL NONE DETECTED (NONE DETECT); UR BARBITUATES QUAL NONE DETECTED (NONE DETECT); UR BENZODIAZEPIN QUAL NONE DETECTED (NONE DETECT); UR CANNABINOIDS QUAL NONE DETECTED (NONE DETECT); UR COCAINE QUAL NONE DETECTED (NONE DETECT); UR METHADONE QUAL NONE DETECTED (NONE DETECT); UR OPIATES QUAL NONE DETECTED (NONE DETECT); UR OXYCODONE QUAL PRESUMPTIVE POSITIVE (NONE DETECT); UR PCP QUAL NONE DETECTED (NONE DETECT)
[2019-04-30] MEDS ORDERED: XANAX PO ONE (23:39)
[2019-05-01 00:33] LABS: CK-MB 18.12 ng/mL (0.0-5.0)
[2019-05-01] MEDS ORDERED: NS 1,000 ML IV SCH (01:00)
--- NOTE | 2019-05-01 03:12 | HISTORY AND PHYSICAL ---
PRIMARY CARE PROVIDER: EBONY Leiva. ADDENDUM: The patient was admitted to our facility after passing out while working outside for several hours in the heat and perspiring excessively. She said it was sudden, was there at that time, and she came to in a few seconds. When she came in, her blood pressure was 82/68, and she was given fluids. Also of note, we noticed that her BUN was 38 and creatinine 2.3. Her last creatinine was 0.7 two weeks ago. She also had a troponin of 1.19 on admission, but subsequent 1 has dropped down to 0.6, which is reassuring. She denies any chest pain but did admit to having some slight shortness of breath when this event happens. UDS positive for oxycodone. She has urinalysis showing too numerous to count white blood cells. EKG showed normal sinus rhythm with possible left atrial enlargement. The patient denies any neurological complaints and never hit her head when she fell down, according to the patient. Her vital signs, 74/55, temperature is 97.5 degrees, heart rate is 97, respiratory rate is 20. She received 2 boluses of fluid. Her blood pressure is now 93/60, her heart rate is 75. Her exam is essentially benign. She is very anxious, by the way, because her was diagnosed with lung cancer stage IV, and she has been stressing out. She denies any decline his urinary, by the way, and no vomiting, GI losses, or bleeding. So, after I reviewed the patient's medication list, I noticed that she was on lisinopril. This, coupled with the fact that she became dehydrated after working out in the sun, probably caused her protracted hypotension and then syncope. The patient was noted to be dehydrated and she will continue to get IV fluids. Discontinue any nephrotoxic medication. Because of her elevated troponin's, I would recommend she gets, at the very least, a Cardiology consult for other inpatient versus outpatient work up. cc: MD Gregg Barroso CRNP
[2019-05-01] MEDS ORDERED: ZOFRAN IV PRN (03:27)
[2019-05-01] MEDS ORDERED: TYLENOL PO PRN (03:35)
[2019-05-01] MEDS: DUONEB (A & A) INH SCH ×4 (03:49→21:10)
[2019-05-01 05:45] LABS: BASO# 0.01 X1000 (0.0-0.2); BASO% 0.2 % (0.0-0.8); EOS# 0.28 X1000 (0.0-0.7); EOS% 4.6 % (0.0-10.0); HEMATOCRIT 35.1 % (37.0-47.0); HEMOGLOBIN 11.6 g/dL (12.0-16.0); LYMPH# 2.03 X1000 (1.2-3.4); LYMPH% 33.2 % (20.5-51.1); MCV 84.6 FL (81-99); MONO# 0.58 X1000 (0.11-0.59); MONO% 9.5 % (1.7-9.3); MPV 9.7 FL (7.4-10.4); NEUT# 3.22 X1000 (1.4-6.5); NEUT% 52.5 % (42.2-75.2); PLT 161 X1000 (130-400); RBC 4.15 XMIL (4.2-5.4); RDW 13.2 % (11.5-14.5); WBC 6.12 X1000 (4.8-10.8)
[2019-05-01 06:03] LABS: ALB/GLOB RATIO 1.6; ALBUMIN 3.8 g/dL (3.5-5.0); CALCIUM 8.2 mg/dL (8.8-10.2); CREATININE 1.8 mg/dL (0.5-0.9); MAGNESIUM 1.8 mg/dL (1.5-2.7); POTASSIUM 4.8 mmol/L (3.5-5.1); TOTAL BILIRUBIN 0.32 mg/dL (0.20-1.00); TOTAL PROTEIN 6.2 g/dL (6.3-8.3)
[2019-05-01 06:38] LABS: CK INDEX 7.3 (0.0-2.5); CK-MB 20.24 ng/mL (0.0-5.0)
--- NOTE | 2019-05-01 07:05 | Diag Imaging Result Doc PS360 ---
EXAM: CHEST-1 VIEW 05/01/2019 HISTORY: SOB,Wheezing Rhonchi bilaterally,COPD TECHNIQUE: AP portable at 0505 COMMENT: The inspiration is much less optimal than on 03/01/2018. Considering this there has been no significant change. IMPRESSION: Poor inspiration. Electronically signed by Frederic Gleason 05/01/2019 7:03 AM
--- NOTE | 2019-05-01 07:20 | EKG Report ---
Test Performed on : 05/01/2019 06:42:12 AM Test Reason : chest pain Blood Pressure : / mmHG Vent. Rate : 068 BPM Atrial Rate : 068 BPM P-R Int : 196 ms QRS Dur : 078 ms QT Int : 418 ms P-R-T Axes : 074 053 054 degrees QTc Int : 444 ms Normal sinus rhythm. Normal ECG When compared with ECG of 30-APR-2019 20:53, (Unconfirmed) No significant change was found Confirmed by Willie Akins MD ([id number]) on 05/01/2019 12:02:39 PM
[2019-05-01] MEDS: ATIVAN PO PRN (07:44)
[2019-05-01] MEDS: LEXAPRO PO SCH (08:02)
[2019-05-01] MEDS: ASPIRIN PO SCH (08:02)
--- NOTE | 2019-05-01 10:47 | CARDIOLOGY CONSULTATION ---
DATE: 05/01/2019 REASON FOR CONSULTATION: Cardiology was consulted for abnormal cardiac enzymes. HISTORY OF PRESENT ILLNESS: The patient is a 52-year-old lady with a history of hepatitis, depression, hypertension, history of pancreatitis, who was working in the heat over the last several hours prior to admission, and was perspiring significantly. She suddenly had an episode where she blacked out for a few seconds. When she came in, her blood pressure was 82/68. She was given IV fluids. Her BUN was 38, creatinine 2.3. Her last creatinine prior to this a couple of weeks ago was 0.7. Her troponin initial was 1.19 on admission. Subsequently, it dropped to 0.6. She denied any chest pain. However, she has had epigastric discomfort. Electrocardiogram revealed normal sinus rhythm. There were no ST-T changes to suggest any ischemia or infarction. The patient is extremely anxious, and her has been diagnosed to have cancer, and she is under significant stress as well. PAST MEDICAL/SURGICAL HISTORY: 1. Depression. 2. History of drug overdose. 3. Hepatitis C. 4. Chronic obstructive pulmonary disease. 5. Asthma. 6. Tobacco dependence. 7. Pancreatitis in 2018. Subsequently, underwent cholecystectomy. She had endoscopic retrograde cholangiopancreatography and stent removal on 02/13/2018. On 02/10/2018, she underwent laparoscopic cholecystectomy as well. SOCIAL HISTORY: The patient is . Currently smokes. Denies alcohol abuse. ALLERGIES: She is allergic to sulfonamides. HOME MEDICATIONS: Include lisinopril 20 mg a day, nebulizers, lorazepam 0.5 mg p.o. b.i.d., Lexapro. She had told the nursing staff that she buys oxycodone on the street. REVIEW OF SYSTEMS: A 14-point review of systems was done. GI: There is no nausea. There is no vomiting or hematemesis. Central Nervous System: No focal weakness to suggest a CVA, TIA. : There is no dysuria or hematuria. PHYSICAL EXAMINATION: Vital Signs: Blood pressure 99/60. Neck: Jugular venous pressure was normal. Heart: First and second heart sounds were heard. There was no S3 gallop. Respiratory: Scattered expiratory wheeze. Abdomen: Soft, nontender, except for in the epigastrium, there was mild tenderness. Bowel sounds were heard. Central Nervous System: Alert, oriented, was moving all 4 extremities. Extremities: No pedal edema. There was no calf tenderness. HEENT: Atraumatic, normocephalic. Pupils were equal and reacting to light. IMAGING AND LABORATORY DATA: Laboratory examination revealed, when she came in, sodium was 138, potassium 4.9, BUN 38, creatinine 2.3. First troponin was 1.190, with a CK-MB of 19, CK index of 8.4, subsequent CK was 18.12, troponin had come down to 0.604. The last BUN and creatinine were 34, creatinine down to 1.8. Hematology: WBC 4.15, hemoglobin 11.6, hematocrit 35, platelet count of 161. Chest x-ray: Poor inspiration, otherwise unremarkable. Electrocardiogram revealed normal sinus rhythm. No ST-T changes to suggest ischemia or infarction. ASSESSMENT AND PLAN: 1. Ms. Rui Barraza is a 52-year-old lady with a history of chronic obstructive pulmonary disease, asthma, hypertension, hepatitis C, pancreatitis in the past, status post cholecystectomy, history of tobacco abuse, who comes with complaints of having a syncopal episode. She had been working outside, was in the heat, was sweating profusely as well. She had normal kidney function recently. However, creatinine was up to 2.3 on admission. This is secondary to dehydration. With intravenous fluids, she has improved as far as renal function is concerned. Blood pressure is stable. She was hypotensive when she presented to the emergency room. From a cardiac standpoint, her left ventricular ejection fraction is normal. No significant wall motion abnormality. Please see detailed echocardiogram report. She is getting intravenous fluids. 2. Severely abnormal cardiac enzymes, significantly elevated in the setting of acute tubular necrosis, and no chest pain suggestive of angina, electrocardiogram being normal. I suspect this is secondary to her dehydration and acute tubular necrosis. However, there are significantly elevated troponins. Given this, will make sure there is no ischemia. We will set her up to undergo a Lexiscan Cardiolite stress test. In the interim, we will add low-dose beta-blockers, and continue with the aspirin. Thank you for the consult. Will follow hospital course. cc: Dre Polanco MD
[2019-05-01] MEDS: ATIVAN IV PRN ×2 (10:48→15:07)
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
[2019-05-01] MEDS: PERCOCET-5 PO PRN (12:36)
--- NOTE | 2019-05-01 14:07 | EKG Report ---
Test Performed on : 05/01/2019 2:01:37 PM Test Reason : dyspnea, elevated troponins Blood Pressure : / mmHG Vent. Rate : 072 BPM Atrial Rate : 072 BPM P-R Int : 186 ms QRS Dur : 078 ms QT Int : 394 ms P-R-T Axes : 076 024 043 degrees QTc Int : 431 ms Normal sinus rhythm. Normal ECG When compared with ECG of 01-MAY-2019 06:42, No significant change was found Confirmed by Willie Akins MD ([id number]) on 05/02/2019 12:10:33 PM
[2019-05-01] MEDS: NS 1,000 ML IV SCH ×2 (15:07→22:48)
[2019-05-01 15:30] LABS: CK INDEX 6.5 (0.0-2.5); CK-MB 15.85 ng/mL (0.0-5.0)
--- NOTE | 2019-05-01 16:01 | ECHO REPORT ---
ORDER DATE: 05/01/2019 INDICATION: Elevated troponin and syncope. FINDINGS: 1. Right atrium appears normal in size. 2. Moderate tricuspid regurgitation. RV systolic pressure is 61. 3. Normal RV size and systolic function. 4. No significant pulmonic insufficiency. 5. Normal left atrial size with a volume index of 21. 6. No mitral valve prolapse. Trace mitral regurgitation. No evidence of mitral stenosis. 7. Normal LV size, end-diastolic dimension of 4.3. Normal wall thicknesses with a posterior and interventricular septal wall thickness of 0.9 cm each. Normal LV systolic function. Estimated EF of 65%. On some views, the extreme apex appears to be possibly hypokinetic. I would consider a limited echo with echo contrast to clarify the apex. 8. Aortic valve opens well. It is trileaflet. No evidence of stenosis or insufficiency. 9. Aorta appears normal in visualized segments. 10. No pericardial effusion seen. cc: Camilo Delcid MD
[2019-05-01] MEDS ORDERED: STERILE WATER INJ. INJ ONE (16:35)
[2019-05-01] MEDS ORDERED: GEODON IM ONE (16:35)
[2019-05-01] MEDS: TOPROL XL PO SCH (20:25)
[2019-05-02] MEDS: ATIVAN IV PRN ×5 (00:02→20:48)
[2019-05-02] MEDS: PERCOCET-5 PO PRN ×4 (00:06→23:52)
[2019-05-02] MEDS: DUONEB (A & A) INH SCH ×4 (03:25→22:23)
[2019-05-02 06:07] LABS: HEMATOCRIT 32.7 % (37.0-47.0); HEMOGLOBIN 10.8 g/dL (12.0-16.0); MCH 28.1 PG (27-31); MCV 84.9 FL (81-99); MPV 9.8 FL (7.4-10.4); RBC 3.85 XMIL (4.2-5.4); WBC 3.46 X1000 (4.8-10.8)
[2019-05-02 06:44] LABS: ALB/GLOB RATIO 1.4; ALBUMIN 3.6 g/dL (3.5-5.0); CALCIUM 8.4 mg/dL (8.8-10.2); CREATININE 1.3 mg/dL (0.5-0.9); POTASSIUM 4.3 mmol/L (3.5-5.1); TOTAL BILIRUBIN 0.18 mg/dL (0.20-1.00); TOTAL PROTEIN 6.2 g/dL (6.3-8.3)
--- NOTE | 2019-05-02 06:59 | Diag Imaging Result Doc PS360 ---
EXAM: CHEST-PORTABLE 05/02/2019 HISTORY: dyspnea TECHNIQUE: AP portable at 0505 COMMENT: The lungs are better expanded than on 05/01/2019. There is no evidence of acute cardiac or pulmonary disease. IMPRESSION: No evidence of acute disease. Electronically signed by Frederic Gleason 05/02/2019 6:57 AM
[2019-05-02] MEDS: NS 1,000 ML IV SCH (07:15)
[2019-05-02] MEDS: ATIVAN PO PRN (07:15)
--- NOTE | 2019-05-02 07:31 | EKG Report ---
Test Performed on : 05/02/2019 06:46:54 AM Test Reason : dyspnea Blood Pressure : / mmHG Vent. Rate : 064 BPM Atrial Rate : 064 BPM P-R Int : 200 ms QRS Dur : 080 ms QT Int : 394 ms P-R-T Axes : 059 021 037 degrees QTc Int : 406 ms Normal sinus rhythm. Nonspecific T wave abnormality Abnormal ECG When compared with ECG of 01-MAY-2019 14:01, (Unconfirmed) No significant change was found Confirmed by Willie Akins MD ([id number]) on 05/02/2019 12:11:08 PM
[2019-05-02] MEDS ORDERED: NS 500 ML ONE (08:16)
[2019-05-02] MEDS ORDERED: DOBUTAMINE 250 MG/D5W 250 MG/250 ML IV.SOLN ONE (08:17)
[2019-05-02] MEDS ORDERED: ATROPINE SYRINGE ONE (08:56)
[2019-05-02] MEDS ORDERED: LOPRESSOR ONE (08:56)
[2019-05-02] MEDS: ASPIRIN PO SCH (11:06)
[2019-05-02] MEDS: TOPROL XL PO SCH ×2 (11:06→20:49)
[2019-05-02] MEDS: LEXAPRO PO SCH (11:06)
--- NOTE | 2019-05-02 11:10 | PROGRESS NOTE ---
DATE: 05/02/2019 SUBJECTIVE: This morning, Ms. Barraza refers to be doing a whole lot better. No chest pain. No shortness of breath. She just came from a stress test. OBJECTIVE: Vital Signs: Blood pressure is 147/97, pulse of 71, respirations are 15, temperature is 98.0 degrees. General Examination: Ms. Barraza is a 53-year-old, female. She is in bed. No distress. HEENT: Mucosa is pink and moist. Anicteric. Acyanotic. Neck: Supple. Chest: Good air entry bilaterally. There are no crepitations. No rhonchi. Cardiovascular: Regular rate and rhythm. No murmurs, no rubs, no gallops. Abdomen: Soft, nontender. Extremities: No pedal edema. OPEN HEARTH MELTER: The patient is awake, alert, and oriented. There is no focal neurological deficit. Laboratory Data: CBC is reviewed. The patient has normocytic anemia. Chemistry is also reviewed. Creatinine is down to 1.3. Chloride is slightly elevated. Troponin has normalized. The patient's current medications have all been reviewed. ASSESSMENT: 1. Syncope at home secondary to orthostatic hypotension. 2. Severe hypotension on presentation. 3. Severe clinical volume depletion. 4. Acute kidney injury secondary to the above, improving. 5. Troponin elevation, presumably due to demand ischemia. However, underlying coronary artery disease cannot be entirely ruled out. Patient is getting a stress test today. Cardiology is on board. 6. History of hepatitis C. 7. Chronic obstructive pulmonary disease. PLAN: In general, I think Ms. Barraza is doing a lot better. She is not symptomatic anymore. Blood pressures have stabilized. We are going to transfer her from the ICU to the medical floor, and await her continued cardiac workup. cc: Tramaine Rutherford MD
[2019-05-02] MEDS: D5 1/2 NS + KCL 20 MEQ 1,000 ML IV SCH (11:11)
--- NOTE | 2019-05-02 11:11 | Diag Imaging Result Document ---
PROCEDURE NAME: MYOCARDIAL PERF SCAN, STR/REST - 05/02/2019 PROCEDURE: Dobutamine Cardiolite stress test. DESCRIPTION OF PROCEDURE IN DETAIL: Dobutamine was infused per standard protocol. Atropine was given to increase heart rate. Heart rate of 133. The patient was injected with Cardiolite. The stress electrocardiogram was negative for ischemia. Following the stress test, rest and stress images were obtained. It is a 2 day protocol. Total of 35 mCi of Cardiolite was injected for the stress phase; 35.0 mCi of Cardiolite was injected for the rest phase. Gated SPECT images were obtained in standard views. Images revealed significant chest wall and diaphragmatic attenuation. There is better tracer uptake on the stress compared to rest. There is normal left ventricular cavity size. Low-grade, fixed perfusion defect was noted in the left ventricular apex with normal wall motion. This is likely to represent attenuation defect versus small scar. There is no evidence of ischemia. CONCLUSIONS: 1. No chest pain. 2. Negative dobutamine stress electrocardiogram. 3. Myocardial perfusion images revealed no evidence of ischemia. 4. Left ventricular cavity size is normal with low-grade, fixed defect in the left ventricular apex with significant chest wall and diaphragmatic attenuation. This could represent attenuation defect versus scar. 5. Left ventricular ejection fraction by gated SPECT was 79%. cc: MD Cielo Mcclure PA
[2019-05-02] MEDS ORDERED: ATIVAN PO PRN (23:44)
[2019-05-03] MEDS: D5 1/2 NS + KCL 20 MEQ 1,000 ML IV SCH ×2 (00:14→12:14)
[2019-05-03] MEDS: ATIVAN IV PRN ×3 (02:06→12:39)
[2019-05-03] MEDS: DUONEB (A & A) INH SCH ×2 (03:30→08:19)
[2019-05-03] MEDS: PERCOCET-5 PO PRN ×2 (06:58→12:33)
[2019-05-03 08:25] LABS: EOS% 5.9 % (0.0-10.0); HEMATOCRIT 32.4 % (37.0-47.0); HEMOGLOBIN 10.8 g/dL (12.0-16.0); LYMPH% 39.2 % (20.5-51.1); MCH 28.1 PG (27-31); MCHC 33.3 g/dL (33-37); MCV 84.4 FL (81-99); MPV 10.4 FL (7.4-10.4); NEUT# 1.31 X1000 (1.4-6.5); NEUT% 47.9 % (42.2-75.2); PLT 116 X1000 (130-400); RBC 3.84 XMIL (4.2-5.4); RDW 12.6 % (11.5-14.5); WBC 2.73 X1000 (4.8-10.8)
[2019-05-03 08:26] LABS: EOS# 0.16 X1000 (0.0-0.7); LYMPH# 1.07 X1000 (1.2-3.4); MONO# 0.19 X1000 (0.11-0.59)
[2019-05-03] MEDS: TOPROL XL PO SCH (08:47)
[2019-05-03] MEDS: LEXAPRO PO SCH (08:47)
[2019-05-03] MEDS: ASPIRIN PO SCH (08:47)
[2019-05-03 09:39] LABS: ALBUMIN 3.8 g/dL (3.5-5.0); CALCIUM 9.1 mg/dL (8.8-10.2); POTASSIUM 4.1 mmol/L (3.5-5.1)
[2019-05-03 12:02] VITALS: BP 153/90
--- NOTE | 2019-05-04 08:14 | DISCHARGE SUMMARY ---
ADMISSION DATE: 04/30/2019 DISCHARGE DATE: 05/03/2019 DISPOSITION: Home. FOLLOW-UP: 1. Dr. Polanco. 2. Dr. Akins. CONSULTATION DURING THIS ADMISSION: Cardiology was consulted. Patient was seen by Dr. Polanco. INVASIVE PROCEDURES DONE DURING THIS ADMISSION: None. IMAGING STUDIES OF SIGNIFICANCE: A chest x-ray did show poor inspiration effort. An echocardiogram did show an ejection fraction of 65% with possible apex hypokinetic changes but not very well visualized. A stress test subsequently did show an ejection fraction of 79%, low-grade fixed defect in the left ventricle apex with significant chest wall and diaphragmatic attenuation. This could represent attenuation versus scar. ADMISSION DIAGNOSES: 1. Near-syncope. 2. Acute kidney injury. 3. Fluid depletion. 4. Hypotension. 5. Elevated troponins. 6. Chronic obstructive pulmonary disease. DIAGNOSES AT THE TIME OF DISCHARGE: 1. Syncope at home secondary to orthostatic hypotension. 2. Severe hypotension on presentation presumed to be combination of medication side effects and severe volume depletion. 3. Clinical volume depletion on presentation. 4. Acute kidney injury secondary to volume depletion. 5. Elevated troponin secondary to demand ischemia (type 2 [place] with unremarkable stress test). 6. Hepatitis C. 7. Chronic obstructive pulmonary disease with ongoing tobacco use. 8. Anxiety and depression. 9. History of prescription drug abuse. PRESENTING COMPLAINT: Heat related illness and near syncope. HISTORY OF PRESENTING COMPLAINT: Ms. Barraza is a 53-year-old female with a history of COPD with ongoing tobacco use, hypertension on lisinopril, came to the emergency department because of feeling dizzy and sensation of almost passing out. She did not completely lose consciousness, but she had to sit down. Upon presenting to the emergency department, Ms. Barraza was evaluated, was found to be extremely hypotensive with a blood pressure of 74/55, very, very dry. She was subsequently admitted to the ICU for intensive care management. HOSPITAL COURSE: Ms. Barraza was adequately fluid resuscitated. Her hydration status continued to improve. Her creatinine improved from 2.3 on admission to 1.0 upon discharge. She was no more hypotensive. Obviously her lisinopril was discontinued in the face of the renal abnormality and the hypotension. Ms. Barraza's urine toxicology was also positive for oxycodone. During the hospital course, Cardiology was also consulted because of abnormal troponin which investigations were including an echo and stress test have been unrevealing. This is presumed to be a demand mismatch when the patient became extremely hypotensive in the face of renal impairment. The patient denied any chest pain. No more shortness of breath. On the day of discharge, she was crying and the who was at the bedside did tell me that Ms. Barraza has issue with her mother in the past, for the past 10 years they have not talked and she really wants to get back to her mother. I was told that Ms. Barraza's only son lives with her mother because of some custody issue. Ms. Barraza was already on some antidepressants which I plan to continue. DISCHARGE MEDICATIONS: 1. Albuterol inhaler. 2. Aspirin 81 mg daily. 3. Lexapro 20 mg p.o. daily. 4. Lorazepam 0.5 mg b.i.d. At the time of the discharge Ms. Barraza has been advised to continue adequate hydration, to withhold her blood pressure medications until she sees her PCP on the next visit. She has also been advised on prescription drug abuse. All the discharge instructions were discussed with her. The was at the bedside at the time of the encounter. Both of them voiced understanding. Time spent for discharge is 38 minutes. cc: MD Dre Diaz MD M. Neel Roberts, MD
--- NOTE | 2019-05-04 13:18 | Extremity Venous Study ---
PROCEDURE NAME: Venous U/S Bilateral Legs - 05/01/2019 REQUESTING PROVIDER: Batsheva. PHOTOENGRAVER: Patrick. INDICATIONS: Edema, with decreased blood pressure and shortness of breath. EQUIPMENT: Pict Vivid E9 ultrasound system with a 9 L-D transducer. FINDINGS: Images of bilateral lower extremity venous systems were obtained in both sagittal and transverse planes. Doppler was used to evaluate veins for spontaneity, phasicity, respiratory excursion, and digital augmentation. RESULTS: Normal venous compression, normal venous flow. No obvious superficial or deep venous thrombosis noted. INTERPRETATION: Essentially normal bilateral lower extremity venous study. cc: MD Cielo Dupont PA
== END 2019-05-03 13:22 | disposition home or self-care (01) | DRG 682 ==
LOC: SUPCPDRO → ED 19:31 → SUATTDRO 19:32 → ICU 05-01 02:00 → SUATTDRO 05-01 02:00 → 1N 05-02 16:10
PROVIDERS: ATTEND Internal Medicine

== ENCOUNTER 2019-08-03 15:04 | Observation (INO) ==
--- NOTE | 2019-08-03 15:37 | Diag Imaging Result Doc PS360 ---
EXAM: CHEST-PORTABLE - 08/03/2019 HISTORY: overdose TECHNIQUE: Portable chest COMPARISON: 05/18/2019 FINDINGS: Heart size is normal. The lungs appear clear. There is no pleural effusion or pneumothorax identified. IMPRESSION: No evidence of acute disease. Electronically signed by Wolf Sheridan 08/03/2019 3:35 PM
[2019-08-03 16:15] LABS: URINE SOURCE CATH
[2019-08-03 16:17] LABS: BASO# 0.02 X1000 (0.0-0.2); BASO% 0.3 % (0.0-0.8); EOS% 5.3 % (0.0-10.0); HEMATOCRIT 39.1 % (37.0-47.0); HEMOGLOBIN 12.7 g/dL (12.0-16.0); IMM GRAN# 0.03 X1000 (0.0-0.04); IMM GRAN% 0.4 % (0.0-0.5); LYMPH# 1.37 X1000 (1.2-3.4); LYMPH% 18.1 % (20.5-51.1); MCH 27.2 PG (27-31); MCHC 32.5 g/dL (33-37); MCV 83.7 FL (81-99); MONO# 0.62 X1000 (0.11-0.59); MONO% 8.2 % (1.7-9.3); MPV 9.9 FL (7.4-10.4); NEUT# 5.11 X1000 (1.4-6.5); NEUT% 67.7 % (42.2-75.2); PLT 196 X1000 (130-400); RBC 4.67 XMIL (4.2-5.4); RDW 12.9 % (11.5-14.5); WBC 7.55 X1000 (4.8-10.8)
[2019-08-03 16:24] LABS: BILIRUBIN URINE NEGATIVE (NEGATIVE); BLOOD URINE NEGATIVE (NEGATIVE); COLOR YELLOW; GLUCOSE URINE 70 mg/dL (NEGATIVE); KETONE URINE TRACE mg/dL (NEGATIVE); LEUKOCYTES URINE NEGATIVE (NEGATIVE); NITRITE URINE NEGATIVE (NEGATIVE); PH URINE 5.5; PROTEIN URINE TRACE mg/dL (NEGATIVE); SP GRAVITY URINE 1.027; TURBIDITY URINE CLEAR (CLEAR); UROBILINOGEN URINE 2 mg/dL (NORMAL)
[2019-08-03] MEDS ORDERED: NS 1,000 ML IV ONE (16:24)
[2019-08-03 16:25] LABS: UR EPITHELIAL CELLS <10 /HPF (<10); URINE BACTERIA NEGATIVE /HPF; URINE RBC <10 /HPF (<10); URINE WBC <10 /HPF (<10)
[2019-08-03] MEDS ORDERED: NARCAN IV ONE (16:28)
[2019-08-03 16:42] LABS: UR AMPHETAMINES QUAL NONE DETECTED (NONE DETECT); UR BARBITUATES QUAL NONE DETECTED (NONE DETECT); UR BENZODIAZEPIN QUAL PRESUMPTIVE POSITIVE (NONE DETECT); UR CANNABINOIDS QUAL PRESUMPTIVE POSITIVE (NONE DETECT); UR COCAINE QUAL NONE DETECTED (NONE DETECT); UR METHADONE QUAL NONE DETECTED (NONE DETECT); UR METHAMPHETAMINE QUAL NONE DETECTED (NONE DETECT); UR OPIATES QUAL NONE DETECTED (NONE DETECT); UR OXYCODONE QUAL PRESUMPTIVE POSITIVE (NONE DETECT); UR PCP QUAL NONE DETECTED (NONE DETECT); UR PROPOXYPHENE QUAL NONE DETECTED (NONE DETECT); UR TCA QUAL NONE DETECTED (NONE DETECT)
[2019-08-03 16:47] LABS: AGAP 12; ALBUMIN 4.3 g/dL (3.5-5.0); ALKALINE PHOSPHATASE 127 U/L (32-104); BUN 25 mg/dL (8-22); CALCIUM 8.6 mg/dL (8.8-10.2); CHLORIDE 107 mmol/L (98-107); CK PROFILE 54 U/L (24-173); COSMO 286; CREATININE 0.9 mg/dL (0.5-0.9); ESTIMATED GFR > 60; GLUCOSE 98 mg/dL (70-104); GOT 49 U/L (10-30); GPT 55 U/L (10-36); SODIUM 141 mmol/L (136-145); TCO2 23 mmol/L (25-35); TOTAL PROTEIN 6.9 g/dL (6.3-8.3)
--- NOTE | 2019-08-03 19:42 | HISTORY AND PHYSICAL ---
ADDENDUM: Patient seen and examined by myself. Full note dictated and discussed with nurse practitioner. Patient presented to the hospital with her . Her notes that she was found in the garage by a bystander unconscious, and they started CPR and called the ambulance. Upon EMS' arrival, she had a faint pulse. Was given 2 Narcans. Her is fairly certain that she overdosed, but he is unsure of exactly what. Currently the patient is alert but very somnolent. She falls back asleep as soon as he stops stimulating her. She is in no respiratory distress. We are going to admit her to the hospital, place her in the ICU and follow. cc: Vinh Gonsales MD
[2019-08-03] MEDS ORDERED: ZOFRAN IV PRN (21:26)
[2019-08-03] MEDS: NS 1,000 ML IV SCH (22:10)
[2019-08-04] MEDS: NS 1,000 ML IV SCH ×3 (05:07→22:55)
--- NOTE | 2019-08-04 05:52 | Diag Imaging Result Doc PS360 ---
EXAM: CHEST-PORTABLE HISTORY: overdose TECHNIQUE: Single view COMPARISON: 08/03/2019 FINDINGS: The lungs are well expanded. The heart is not enlarged. Central vascular prominence. There are no infiltrates. No effusion identified. IMPRESSION: Central vascular distention, otherwise negative exam. Electronically signed by Ryan Dominique 08/04/2019 5:49 AM
[2019-08-04 07:33] LABS: BASO# 0.02 X1000 (0.0-0.2); BASO% 0.4 % (0.0-0.8); EOS# 0.31 X1000 (0.0-0.7); EOS% 5.9 % (0.0-10.0); HEMATOCRIT 35.3 % (37.0-47.0); HEMOGLOBIN 11.2 g/dL (12.0-16.0); LYMPH# 1.96 X1000 (1.2-3.4); LYMPH% 37.2 % (20.5-51.1); MCH 26.9 PG (27-31); MCHC 31.7 g/dL (33-37); MCV 84.9 FL (81-99); MONO# 0.33 X1000 (0.11-0.59); MONO% 6.3 % (1.7-9.3); MPV 10.5 FL (7.4-10.4); NEUT# 2.65 X1000 (1.4-6.5); NEUT% 50.2 % (42.2-75.2); PLT 169 X1000 (130-400); RBC 4.16 XMIL (4.2-5.4); RDW 12.9 % (11.5-14.5); WBC 5.27 X1000 (4.8-10.8)
[2019-08-04 07:52] LABS: AGAP 9; ALB/GLOB RATIO 1.7; ALBUMIN 3.6 g/dL (3.5-5.0); ALKALINE PHOSPHATASE 93 U/L (32-104); BUN 16 mg/dL (8-22); CALCIUM 8.5 mg/dL (8.8-10.2); CHLORIDE 105 mmol/L (98-107); COSMO 274; CREATININE 0.7 mg/dL (0.5-0.9); ESTIMATED GFR > 60; GLUCOSE 86 mg/dL (70-104); GOT 42 U/L (10-30); GPT 48 U/L (10-36); MAGNESIUM 1.9 mg/dL (1.5-2.7); POTASSIUM 3.8 mmol/L (3.5-5.1); SODIUM 137 mmol/L (136-145); TCO2 23 mmol/L (25-35); TOTAL BILIRUBIN 0.35 mg/dL (0.20-1.00); TOTAL PROTEIN 5.7 g/dL (6.3-8.3)
--- NOTE | 2019-08-04 08:50 | EKG Report ---
Test Performed on : 08/04/2019 06:17:54 AM Test Reason : chest pain Blood Pressure : / mmHG Vent. Rate : 056 BPM Atrial Rate : 056 BPM P-R Int : 176 ms QRS Dur : 080 ms QT Int : 428 ms P-R-T Axes : 064 028 039 degrees QTc Int : 413 ms Sinus bradycardia. Otherwise normal ECG When compared with ECG of 18-MAY-2019 22:54, Nonspecific T wave abnormality no longer evident in Anterolateral leads Confirmed by Jose M DALTON, Dipesh ([id number]) on 08/06/2019 8:51:54 AM
[2019-08-04] MEDS ORDERED: TORADOL IV SCH (09:45)
[2019-08-04] MEDS: TORADOL IV PRN ×3 (09:46→22:11)
[2019-08-04] MEDS ORDERED: TYLENOL PO PRN (15:15)
--- NOTE | 2019-08-04 15:32 | PROGRESS NOTE ---
DATE: 08/04/2019 SUBJECTIVE: Patient has no major complaints. OBJECTIVE: Vitals: Blood pressure is 89/47. Heart rate is in the 50s and 60s. Cardiovascular: Regular rate and rhythm. Pulmonary: Bilateral breath sounds. Clear to auscultation. GI: Soft, nontender, nondistended. Bowel sounds are positive. LABORATORY DATA: White count 5, hemoglobin and hematocrit 11 and 35, platelets of 169,000. Basic was normal. AST and ALT are up a little bit at 42 and 48, but she has a history of hepatitis C. ASSESSMENT: Unclear what caused this. Number one, felt to be possibly a drug overdose. She did respond to Narcan. She is much more awake now, but I really do not know why she is in a sense so out of it. It could be polypharmacy. She is on promethazine, Lexapro, Ativan, but I am not sure what the most accurate list of her medication is. Her drug screen showed benzodiazepines and oxycodone and cannabinoids. She is supposed to be on gabapentin. She is also on hydroxyzine, Paxil. I do not see any active prescription for oxycodone, so I am not sure where she got that; there is no prescription for it. DISPOSITION: I think when she is more awake, alert, oriented, we should be able to get her home. cc: Rishabh Barrera MD
[2019-08-05] MEDS: TORADOL IV PRN ×2 (03:45→16:04)
[2019-08-05] MEDS: NS 1,000 ML IV SCH (06:54)
[2019-08-05 08:04] LABS: BASO# 0.01 X1000 (0.0-0.2); BASO% 0.3 % (0.0-0.8); EOS# 0.17 X1000 (0.0-0.7); EOS% 5.4 % (0.0-10.0); HEMATOCRIT 34.7 % (37.0-47.0); LYMPH# 1.21 X1000 (1.2-3.4); LYMPH% 38.2 % (20.5-51.1); MCH 26.8 PG (27-31); MCHC 31.7 g/dL (33-37); MCV 84.4 FL (81-99); MONO# 0.19 X1000 (0.11-0.59); MPV 10.5 FL (7.4-10.4); NEUT# 1.59 X1000 (1.4-6.5); NEUT% 50.1 % (42.2-75.2); PLT 140 X1000 (130-400); RBC 4.11 XMIL (4.2-5.4); RDW 12.9 % (11.5-14.5); WBC 3.17 X1000 (4.8-10.8)
[2019-08-05 08:34] LABS: AGAP 10; ALB/GLOB RATIO 1.8; ALBUMIN 3.5 g/dL (3.5-5.0); ALKALINE PHOSPHATASE 114 U/L (32-104); BUN 20 mg/dL (8-22); CALCIUM 8.7 mg/dL (8.8-10.2); CHLORIDE 112 mmol/L (98-107); COSMO 288; CREATININE 0.8 mg/dL (0.5-0.9); ESTIMATED GFR > 60; GLUCOSE 102 mg/dL (70-104); GOT 64 U/L (10-30); GPT 64 U/L (10-36); SODIUM 143 mmol/L (136-145); TCO2 21 mmol/L (25-35); TOTAL BILIRUBIN 0.31 mg/dL (0.20-1.00); TOTAL PROTEIN 5.5 g/dL (6.3-8.3)
--- NOTE | 2019-08-05 09:23 | EKG Report ---
Test Performed on : 08/03/2019 11:08:06 PM Test Reason : ADMIT Blood Pressure : / mmHG Vent. Rate : 068 BPM Atrial Rate : 068 BPM P-R Int : 182 ms QRS Dur : 076 ms QT Int : 418 ms P-R-T Axes : 065 017 035 degrees QTc Int : 444 ms Normal sinus rhythm. Possible Left atrial enlargement Borderline ECG No previous ECGs available Confirmed by Jose M DALTON, Dipesh ([id number]) on 08/06/2019 8:50:16 AM
[2019-08-05] MEDS ORDERED: TORADOL IV ONE (09:55)
--- NOTE | 2019-08-05 12:28 | Diag Imaging Result Doc PS360 ---
CT HEAD W/O CONTRAST - 08/05/2019 INDICATION: syncope COMPARISON: 04/12/2019 FINDINGS: The ventricles and sulci are normal in size and contour. No intracranial mass or hemorrhage. The skull is intact. The sinuses mastoids and middle ears are clear. IMPRESSION: Negative exam. This exam was performed using automated exposure control, adjustment of mA or kV according to patient size, and/or use of iterative reconstruction technique Electronically signed by Mello Menon 08/05/2019 12:26 PM
[2019-08-05 14:55] VITALS: BP 156/79
--- NOTE | 2019-08-05 15:51 | EKG Report ---
Test Performed on : 08/05/2019 3:06:37 PM Test Reason : syncope Blood Pressure : / mmHG Vent. Rate : 056 BPM Atrial Rate : 056 BPM P-R Int : 184 ms QRS Dur : 074 ms QT Int : 418 ms P-R-T Axes : 062 012 031 degrees QTc Int : 403 ms Sinus bradycardia. Low voltage QRS Borderline ECG When compared with ECG of 04-AUG-2019 06:17, (Unconfirmed) No significant change was found Confirmed by Jose M DALTON, Dipesh ([id number]) on 08/06/2019 9:00:01 AM
--- NOTE | 2019-08-05 20:13 | CARDIOLOGY CONSULTATION ---
DATE: 08/05/2019 HISTORY OF PRESENT ILLNESS: Ms. Barraza is a 54-year-old white female with a history of polysubstance abuse who presented apparently on complaints of passing out in her carport. She was found by her and a neighbor. There is question about a pulse being absent. She received chest compressions at the time and subsequently was brought into the ER. There was some mention of Narcan being administered to the patient in the ER with some response. Since that time, she has been admitted. She has had no arrhythmias on telemetry. She recently had nuclear myocardial perfusion scanning on a recent admission as well as an echocardiogram that showed a preserved ejection fraction as well as no significant ischemic defects. The patient has some chest discomfort in the midchest associated with the chest compressions that she received. It is reproducible with minimal palpation of the sternum. PAST MEDICAL HISTORY: 1. Significant for depression with polysubstance abuse and an admission in 2017 for inpatient psychiatric treatment. 2. Previous drug overdoses. 3. Hepatitis C, questionable if this has ever been treated. 4. COPD. 5. Asthma. 6. Pancreatitis with subsequent cholecystectomy followed by endoscopic retrograde cholangiopancreatography with stent removal. SOCIAL HISTORY: . Smokes cigarettes. Denies any alcohol. REVIEW OF SYSTEMS: A 10 system review of systems is negative. PHYSICAL EXAMINATION: She is afebrile, heart rate 56, her blood pressure is 156/79.General: She is in no acute distress. Somewhat anxious. HEENT: Oropharynx is moist. Poor dentition. Eye examination shows pink conjunctivae. White sclerae. Neck: Shows no obvious thyromegaly or thyroid tenderness. Cardiovascular: She sounds to be in a regular rate and rhythm. She has no obvious murmurs. She has no S3. She has no lower extremity edema. Chest: Clear bilaterally. She has no increased work of breathing. Abdomen: Soft, nontender, nondistended. She has no obvious organomegaly. Skin: Warm and dry throughout without any rashes. Neurological: She is moving all extremities well. She has no lateralizing deficits. PERTINENT DATA: Chest x-ray shows some evidence of central vascular distention. Head CT was unremarkable. Her initial EKG shows sinus rhythm, no ischemic changes. Subsequent EKG on the 1st at 6:17 shows sinus rhythm, no ischemic changes. White count is 3.2, hematocrit 34, platelet count 140,000. Sodium 143, potassium 4, BUN 20, creatinine 0.8. AST and ALT are 64 and 64 respectively. Her TSH is normal. ASSESSMENT: Ms. Barraza is a 54-year-old female who was found down by her family. PLAN: She has some documentation to suggest that she had a response to Narcan. She has a history of psychiatric issues resulting in inpatient treatment with apparent previous drug abuse. At this point, we will arrange for an outpatient heart monitor for 1 week. If this is unremarkable then she can follow up with her primary care physician. She had essentially unremarkable nuclear scanning as well as an echocardiogram on her most recent visit I believe in April. cc: Camilo Delcid MD MTDYudy
--- NOTE | 2019-08-06 09:59 | DISCHARGE SUMMARY ---
ADMISSION DATE: 08/03/2019 DISCHARGE DATE: 08/05/2019 PRINCIPAL DIAGNOSIS: Syncope. SECONDARY DIAGNOSES: 1. History of hepatitis C. 2. Depression. 3. History of drug abuse, history of drug overdose in the past. 4. Anxiety disorder. 5. Chronic obstructive pulmonary disease. 6. Nicotine dependence. DISCHARGE MEDICATIONS: Include the following. 1. Albuterol sulfate HFA 2 puffs every 4 to 6 hours p.r.n. 2. Aspirin 81 mg p.o. daily. 3. Escitalopram 10 mg p.o. as directed. 4. Gabapentin 800 mg p.o. as directed. 5. Lisinopril 20 mg p.o. as directed. 6. Lorazepam 0.5 mg p.o. as directed. 7. Paroxetine 20 mg p.o. as directed. 8. Promethazine 25 mg suppository as directed. CONSULTATIONS DONE DURING THIS HOSPITAL STAY: Cardiology. PROCEDURES DONE DURING THIS HOSPITAL STAY: Chest x-ray on 08/04/2019. EKG 08/04/2019. HOSPITAL COURSE: Ms. Rui Barraza is a 54-year-old female who was found in the garage by a bystander unconscious and they started CPR and they called an ambulance. Upon EMS arrival, the patient was noted to have a faint pulse. She was given Narcan. The patient's was fairly certain that the patient had overdosed but not sure of exactly what. The patient's urine drug screen came back positive for oxycodone, benzodiazepines as well as cannabinoids. Head CT is pending. We will get Cardiology to evaluate the patient prior to her being discharged. PHYSICAL EXAMINATION: General: During my evaluation today, the patient was awake, alert, well oriented. She was complaining of chest wall pain, apparently from CPR that she underwent. Vital signs: Temperature 97.9 degrees, pulse 51, respirations 18, blood pressure 146/86, oxygen saturation 97%. HEENT: Atraumatic, normocephalic. Cardiovascular system: S1, S2. Respiratory system: Has evidence of good air entry bilaterally. Abdomen: Soft, nontender. No masses felt. Extremities: No evidence of edema. Central nervous system: No obvious focal deficits noted. LABORATORY DATA: WBC. 3.17, hematocrit 34.7 with a platelet count of 140,000. Sodium is 143, potassium 4.0, chloride is 112, bicarb 21, BUN is 10, creatinine 0.8. AST is 64, ALT is 64, alkaline phosphatase 114. PLAN: The patient can be discharged home today after Cardiology evaluation. She will need to enroll in an outpatient drug rehab facility and follow up with her primary care physician. cc: Jim Silva MD
--- NOTE | 2019-08-10 19:10 | HISTORY AND PHYSICAL ---
CHIEF COMPLAINT: Overdose. HISTORY OF PRESENT ILLNESS: The patient is a 54-year-old female who presented to the emergency department after an apparent overdose. notes that she was found in the garage by the neighbor. She was unresponsive. The neighbor started CPR and called 911. Upon arrival, 911 noted a faint pulse. They gave her 2 Narcan doses, and the patient started to improve. She apparently had bought something from her friend that she claims was Roxicet. Interestingly enough, the states he tasted it, and it did not taste quite right. ALLERGIES: Cat dander causing itching, sulfa causing hot flashes. MEDICATIONS: Lexapro, ProAir, Ativan. REVIEW OF SYSTEMS: Essentially unobtainable from the patient; however, the denies any fevers, chills, cough, congestion. Denies any knowledge of GI or issues. Denies any knowledge of intentional suicide attempt. PAST MEDICAL HISTORY: Significant for hypertension, COPD. Does have a history of depression, anxiety, and a previous suicide attempt. PAST SURGICAL HISTORY: Colonoscopy, hysterectomy, . FAMILY HISTORY: Noncontributory. SOCIAL HISTORY: She lives at home. She is . Smokes at least a pack a day. Does drink occasionally. Uses benzos daily. Also takes recreational opiates. PHYSICAL EXAM: VITAL SIGNS: Temperature 97.5, pulse 91, respiratory rate 14, BP 102/50. GENERAL: Patient is quite somnolent. She will arouse to stimuli but has to have continued stimuli to stay awake. Answers some questions, but generally appropriately. HEENT: Normocephalic. NECK: Supple. CARDIOVASCULAR: Regular rate. No murmurs. CHEST: Decreased but equal. No crackles, no rhonchi, no wheezing. ABDOMEN: Soft, nondistended, nontender. EXTREMITIES: Moves all extremities. No edema. NEUROLOGIC: Unable to fully assess, but appears grossly intact. LABS: CBC and CMP essentially normal. ASSESSMENT: 1. Altered mental status, likely drug induced. 2. Syncope, drug induced. 3. Acute respiratory failure, improving, likely secondary to drug intoxication. 4. Chronic anxiety and depression. 5. Chronic tobacco abuse. PLAN: We are going to admit the patient to the hospital and place her in the ICU. Continue to follow, treat symptomatically. May require Joelle Wilson before discharge. cc: Vinh Gonsales MD
--- NOTE | 2019-08-24 08:18 | PROVIDER DOCUMENTATION ---
This chart was entered by Misha Rogel Scribe, acting as scribe for Jayson Martinez DO. [id number] Abuse/Overdose - General Chief Complaint: Overdose Time Seen by Provider: 08/03/19 15:09 Source: patient, EMS Allergies/Adverse Reactions: Allergies Allergy/AdvReac Type Severity Reaction Status Date / Time cat dander Allergy Intermediate ITCHING Verified 04/30/19 22:54 Sulfa (Sulfonamide Allergy Intermediate "HOT Verified 04/30/19 22:54 Antibiotics) FLASHES" Home Medications: Home Medication List Medication Instructions Recorded Confirmed Last Taken Type Albuterol Sulfate [Proair Hfa] 2 puff IH Q4-6H PRN PRN #1 03/01/18 04/30/19 Unknown Rx hfa.aer.[email or web address] Promethazine HCl [Phenadoz] 25 mg RC PRN PRN 04/30/19 04/30/19 Unknown History Gabapentin 800 mg PO TID 08/04/19 08/05/19 08/03/19 09:00 History 800mg LISINOpril [Prinivil] 20 mg PO DAILY 08/04/19 08/05/19 08/03/19 09:00 History 20mg Paroxetine HCl 20 mg PO DAILY 08/04/19 08/05/19 08/03/19 History 20mg - History of Present Illness-Drug/Alcohol Nature of Presenting Problem: 54 yof presents to the ed v/a EMS after overdose. EMS reported pt was found in garage by bystander and they started Chest Compressions. EMS stated on arrival pt had faint pulse pt was given 2 Narcos , and started IV in hand when pt came round. Substance was " Roxicet" was bought by a friend, EMS stated " tasted the substance and thought didn't taste right." pt states has cancer. EMS states Xanax and Proxy was the substance pt overdosed on. This episode of drinking or use began:: just prior to arrival Severity: reports: mild Situational problems related to:: reports: N/A Psychiatric Complaints: reports: confused Associated Symptoms: reports: denies symptoms Any injuries associated with this episode of intoxication?: No Similar Symptoms Previously?: No Recently seen or treated by another doctor?: No - Substance Abuse Substance Use: reports: benzodiazepines - Overdose Intentional drug overdose?: No List substance(s) ingested.: EMS reported Xanax and Proxy was the substance pt overdosed on. How did the ingestion/other suicidal act come to attention?: pt took substance and found by a bystander in car garage Suicide Risk Assessment: drug or ETOH abuse Clinician's estimation of suicide risk?: low risk Review of Systems - Adult - REVIEW OF SYSTEMS - ADULT Constitutional: denies: chills, fever Eyes: reports: no symptoms reported Ears, Nose, Mouth & Throat: reports: no symptoms reported Cardiovascular: denies: chest pain, heart murmur, palpitations Respiratory: reports: no symptoms reported Gastrointestinal: denies: diarrhea, nausea, vomiting Genitourinary: reports: no symptoms reported Musculoskeletal: reports: no symptoms reported Integumentary: reports: see HPI, rash (Lt pham). denies: hives, hair loss Neurological: reports: no symptoms reported Psychiatric: reports: no symptoms reported Endocrine: reports: no symptoms reported Hematologic/Lymphatic: reports: no symptoms reported Allergic/Immunologic: reports: no symptoms reported All Other Systems: Reviewed and Negative Past History - Adult - PAST MEDICAL HISTORY-ADULT Review of Records: reports: Old Records Reviewed, Nursing Assessment Review, Medications Reviewed, Social history reviewed & non-contributory. Major Childhood Illnesses: reports: denies history Cardiovascular: reports: HTN Respiratory: reports: asthma, COPD Gastrointestinal: reports: denies history Obstetrical/Gynecological: reports: denies history Genitourinary: reports: denies history Musculoskeletal: reports: denies history Neurological: reports: denies history Psychiatric: reports: anxiety, depression, suicide attempt Endocrine/Immune: reports: denies history Other Conditions: reports: denies history - PRIOR SURGERIES/PROCEDURES Surgical/Procedure History: reports: colonoscopy, hysterectomy, - IMMUNIZATION STATUS Childhood Immunizations: See Nurse Assessment Flu Vaccine: See Nurse Assessment - FAMILY HISTORY Family History: reviewed, not pertinent - SOCIAL HISTORY Smoking: cigarettes, greater than 1 pack/day Provider spent 3-5 mins advising pt. on dangers of tobacco.: Discussed manners to quit use, and f/u contacts for add'l counseling. Substance Use: benzodiazepines Living Situation: family Physical Exam-General - PHYSICAL EXAM-ADULT Initial Vital Signs Reviewed: Yes - CONSTITUTIONAL General Appearance: appears well, alert, no apparent distress, lethargic - EYES Eyes: PERRL/EOMI (4 mm reactive) - HEAD, EARS, NOSE, MOUTH & THROAT HENMT: moist mucous membranes, TMs normal, dental decay (dental carry) - NECK Neck: full range of motion - RESPIRATORY Respiratory: chest non-tender, lungs clear, normal breath sounds, no pleuratic chest pain, no respiratory distress - CARDIOVASCULAR Cardiovascular: normal peripheral pulses, regular rate, rhythm, no edema, no gallop, no murmur - CHEST (BREASTS) Chest/Breast: deferred - GASTROINTESTINAL (ABDOMEN) Abdominal Exam: normal bowel sounds, non tender, soft, no organomegaly, no pulsatile mass - GENITOURINARY Female Genitalia/Pelvic Exam: deferred Rectal Exam: deferred Hemoccult Exam: deferred - MUSCULOSKELETAL Extremity: normal range of motion, non-tender, no pedal edema - SKIN Integumentary: normal color, normal turgor, warm/dry, rash (Lt pham) - NEUROLOGIC Neurologic: grossly normal, no motor/sensory deficits - PSYCHIATRIC Psych/Mental Status: disheveled Progress - PLAN OF CARE/RESULTS Progress/Plan/Lab Results: Orders Category Date Time Status Admit [facility] Routine AdmDCTranf 08/03/19 21:26 Active Activity - Strict Bedrest ORDERED Care 08/03/19 21:26 Completed Apply Mechanical Device [QM] ORDERED Care 08/03/19 21:26 Active Intake and Output-Strict ORDERED Care 08/03/19 21:26 Active Vital Signs Order Q 4-HR ASSESS Care 08/03/19 21:26 Active Z-Document. for Tele Applied ORDERED Care 08/03/19 21:26 Active NPO Diet 08/03/19 21:27 Completed CHEST-PORTABLE [RAD] Routine Exams 08/04/19 06:00 Completed CHEST-PORTABLE [RAD] Stat Exams 08/03/19 15:10 Completed CBC WITH DIFF [HEME] Routine Lab 08/04/19 06:30 Completed CBC WITH ELECTRONIC DIFF [HEME] Stat Lab 08/03/19 16:09 Completed CK PROFILE [SP CHEM] Stat Lab 08/03/19 16:09 Completed COMPREHENSIVE METABOLIC PANEL [CHEM] Routine Lab 08/04/19 06:30 Completed COMPREHENSIVE METABOLIC PANEL [CHEM] Stat Lab 08/03/19 16:09 Completed MAGNESIUM [CHEM] Routine Lab 08/04/19 06:30 Completed TROPONIN T Stat Lab 08/03/19 16:09 Completed UA NIMS W/REFLEX CULT [URINALYSIS] Stat Lab 08/03/19 16:00 Completed URINE DRUG SCREEN PL Stat Lab 08/03/19 16:00 Completed 0.9% Sodium Chloride Inj [Ns] 1,000 ml Med 08/03/19 21:26 Discontinued IV 125 mls/hr 0.9% Sodium Chloride Inj [Ns] 1,000 ml Med 08/03/19 16:24 Discontinued IV 999 mls/hr Naloxone [Narcan] Med 08/03/19 16:28 Discontinued 2 mg IV NOW ONE Ondansetron [Zofran] Med 08/03/19 21:26 Discontinued 4 mg IV Q4H PRN PRN Oxygen Device Routine Oth 08/03/19 21:26 Completed Telemetry [OM.EQ] Routine Oth 08/03/19 21:26 Active EKG [EKG] Routine Ther 08/04/19 08:00 Completed Transfer/Admit Order [TRANSFER] Routine Transfer 08/03/19 18:05 Completed Result Diagrams: 08/05/19 07:00 08/05/19 07:00 - REASSESSMENT Reassessment #1 Time Reassessed: 16:39 Status: improving (still groggy but arousable) - XRAY 1 XRAY Study: Chest Impression: See EMR Report ( EXAM: CHEST-PORTABLE - 08/03/2019 HISTORY: overdose TECHNIQUE: Portable chest COMPARISON: 05/18/2019 FINDINGS: Heart size is normal. The lungs appear clear. There is no pleural effusion or pneumothorax identified. IMPRESSION: No evidence of acute disease. Electronically signed by Wolf Sheridan 08/03/2019 3:35 PM 08/03/19 1535 Interpreting Physician: Wolf Sheridan MD Dictated Date/Time: 1534 cc: Jayson Martinez DO; None,PCP) - CONSULTS/PCP/HOSPITALIST Notification #1 *Consult/PCP/Hospitalist*: Dr. Martinez on the phone with Dr. Gonsales Time Discussed: 16:59 Consult Disposition: Will see in ED Departure - Departure Date of Disposition Decision: 08/03/19 Time of Disposition Decision: 21:00 DIAGNOSIS: Tobacco abuse disorder Drug overdose, intentional Qualifiers: Encounter type: initial encounter Qualified Code(s): T50.902A - Poisoning by unspecified drugs, medicaments and biological substances, intentional self-harm, initial encounter Disposition: ADMITTED INPATIENT 09 Certified Medical Emergency: Emergent Condition: Good - Critical Care Note This patient required my direct & personal management of CC.: No Attestation - Physician/ CHRISTINA Attestation Patient care was provided by Advanced Practice Provider:: No The physician spent face to face time with patient:: Yes Advanced Practice Provider documentation review:: Supervising physician onsite and consulted in the evaluation and care of this patient. The physician did have a face to face encounter with the patient. This chart was documented by the indicated scribe, (Misha Rogel, [employer]) and accurately reflects the services I performed and decisions made by me, Jayson Martinez DO, as attested by the provider's signature.
== END 2019-08-05 18:53 | disposition home or self-care (01) | DRG 918 ==
LOC: P.ED 15:04 → INTOOBSV 18:52 → SUATTDRO 18:52 → ICU 18:52 → 3N 08-04 11:01
PROVIDERS: ATTEND Internal Medicine

== ENCOUNTER 2019-10-04 16:53 | Inpatient (IN) ==
[2019-10-07] MEDS ORDERED: DESYREL PO PRN (14:55)
[2019-10-07] MEDS ORDERED: ZOFRAN IM PRN (14:55)
[2019-10-07] MEDS ORDERED: NICODERM PATCH TD PRN (14:55)
[2019-10-07] MEDS ORDERED: ZOFRAN IV PRN (14:55)
[2019-10-07] MEDS ORDERED: DULCOLAX PR PRN (14:55)
[2019-10-07] MEDS ORDERED: PHENOBARBITAL IV PRN (14:55)
[2019-10-07] MEDS ORDERED: NICOTINE GUM BUCCAL PRN (14:55)
[2019-10-07] MEDS ORDERED: SENOKOT PO PRN (14:55)
[2019-10-07] MEDS ORDERED: MAALOX PLUS LIQUID PO PRN (14:55)
[2019-10-07] MEDS ORDERED: IMODIUM PO PRN ×2 (14:55)
[2019-10-07] MEDS ORDERED: D5W 1,000 ML IV PRN (14:55)
[2019-10-07] MEDS ORDERED: TUBERSOL ID ONE (14:55)
[2019-10-07] MEDS ORDERED: PNEUMOVAX 23 IM ONE (15:07)
[2019-10-07] MEDS ORDERED: SINEMET 25/100 PO PRN (15:36)
[2019-10-07] MEDS ORDERED: ATARAX PO PRN (15:36)
[2019-10-07] MEDS ORDERED: BENTYL PO PRN (15:36)
[2019-10-07] MEDS ORDERED: LIBRIUM PO PRN (15:36)
[2019-10-07 15:45] LABS: AMYLASE 90 U/L (20-200); LIPASE 37 U/L (13-60)
[2019-10-07] MEDS: TYLENOL PO PRN ×2 (16:14→21:40)
[2019-10-07 16:28] LABS: URINE SOURCE CLEAN CATCH
[2019-10-07 16:29] LABS: BILIRUBIN URINE NEGATIVE (NEGATIVE); BLOOD URINE NEGATIVE (NEGATIVE); COLOR YELLOW; GLUCOSE URINE NEGATIVE (NEGATIVE); KETONE URINE NEGATIVE (NEGATIVE); LEUKOCYTES URINE NEGATIVE (NEGATIVE); NITRITE URINE NEGATIVE (NEGATIVE); PH URINE 5.5; PROTEIN URINE NEGATIVE (NEGATIVE); SP GRAVITY URINE 1.025; TURBIDITY URINE HAZY (CLEAR); UROBILINOGEN URINE NORMAL (NORMAL)
[2019-10-07] MEDS: ZOFRAN ODT PO PRN ×2 (16:33→23:06)
[2019-10-07] MEDS: MOTRIN PO PRN (16:33)
[2019-10-07 16:36] LABS: UR AMPHETAMINES QUAL NONE DETECTED (NONE DETECT); UR BARBITUATES QUAL NONE DETECTED (NONE DETECT)
[2019-10-07 16:37] LABS: UR BENZODIAZEPIN QUAL PRESUMPTIVE POSITIVE (NONE DETECT); UR CANNABINOIDS QUAL NONE DETECTED (NONE DETECT); UR COCAINE QUAL NONE DETECTED (NONE DETECT); UR METHADONE QUAL NONE DETECTED (NONE DETECT); UR METHAMPHETAMINE QUAL NONE DETECTED (NONE DETECT); UR OPIATES QUAL PRESUMPTIVE POSITIVE (NONE DETECT); UR OXYCODONE QUAL NONE DETECTED (NONE DETECT); UR PCP QUAL NONE DETECTED (NONE DETECT); UR PROPOXYPHENE QUAL NONE DETECTED (NONE DETECT); UR TCA QUAL NONE DETECTED (NONE DETECT)
[2019-10-07 16:53] LABS: UR EPITHELIAL CELLS >10 /HPF (<10); URINE BACTERIA 2+ /HPF; URINE CASTS NONE SEEN; URINE CRYSTALS NONE SEEN; URINE RBC <10 /HPF (<10); URINE WBC <10 /HPF (<10); URINE YEAST NONE SEEN
[2019-10-07] MEDS: SUBOXONE 2 MG/0.5 MG FILM SL SCH (21:39)
[2019-10-07] MEDS: SEROQUEL PO PRN (23:05)
[2019-10-08] MEDS: SUBOXONE 2 MG/0.5 MG FILM SL SCH (05:20)
[2019-10-08] MEDS: PROTONIX PO SCH (06:06)
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
[2019-10-08] MEDS: SUBUTEX SL SCH ×3 (09:44→20:05)
[2019-10-08] MEDS: FOLIC ACID PO SCH (09:45)
[2019-10-08] MEDS: THERA M PLUS PO SCH (09:45)
[2019-10-08] MEDS: VITAMIN B-1 PO SCH (09:45)
[2019-10-08] MEDS: SEROQUEL PO PRN (20:06)
[2019-10-09] MEDS: TYLENOL PO PRN ×2 (03:18→22:52)
[2019-10-09] MEDS: FOLIC ACID PO SCH (08:29)
[2019-10-09] MEDS: SUBUTEX SL SCH ×4 (08:29→21:05)
[2019-10-09] MEDS: PROTONIX PO SCH (08:30)
[2019-10-09] MEDS: THERA M PLUS PO SCH (08:30)
[2019-10-09] MEDS: VITAMIN B-1 PO SCH (08:30)
--- NOTE | 2019-10-09 08:56 | PROGRESS NOTE ---
DATE: 10/08/2019 SUBJECTIVE: Patient notes that she is feeling a little bit better. Denies any fevers or chills. Denies [*]. OBJECTIVE: Temperature 97, pulse 105, respiratory rate 15, BP 113/67.General: The patient is pleasant [*]. HEENT: Normocephalic. Neck: Supple. Cardiovascular: Regular rate. Chest: Clear. abdomen: Soft. Extremities: Moves all extremities. ASSESSMENT: 1. Nausea and vomiting. 2. Abdominal pain. 3. Myalgias. 4. Paresthesias. 5. Paroxysmal sweating. 6. Polysubstance use and abuse. PLAN: As the patient has been abusing fentanyl, we are not going to go straight to Suboxone. We are going to try for a low-dose Subutex. [*]Continue counseling. cc: Vinh Gonsales MD
[2019-10-09] MEDS ORDERED: M.V.I.-12 10 ML, FOLIC ACID 1 MG, MAGNESIUM SULFATE 1 GM, THIAMINE 100 MG in NS 1,000 ML IV ONE (10:00)
--- NOTE | 2019-10-09 22:11 | PROGRESS NOTE ---
DATE: 10/09/2019 SUBJECTIVE: The patient notes that Subutex helps, but does not last long enough. PHYSICAL EXAMINATION: Vital Signs: Reviewed. Temp 97 degrees, pulse 66, respiratory rate 18, BP 115/82. General: Patient is pleasant, currently in no respiratory distress. HEENT: Normocephalic. Neck: Supple. Cardiovascular: Regular rate. Chest: Clear. Abdomen: Soft. Extremities: Moves all extremities. ASSESSMENT: 1. Nausea and vomiting. 2. Abdominal pain. 3. Tremors. 4. Myalgias. 5. Paresthesias. 6. Paroxysmal sweating. 7. Opiate abuse withdrawal and stabilization. PLAN: We are going to continue Subutex, increase the dose. Continue counseling. Further orders as needed. Cannot use Suboxone due to recent fentanyl use cc: Vinh Gonsales MD MTDD
[2019-10-10] MEDS: PROTONIX PO SCH (06:30)
[2019-10-10] MEDS: THERA M PLUS PO SCH (09:07)
[2019-10-10] MEDS: FOLIC ACID PO SCH (09:07)
[2019-10-10] MEDS: VITAMIN B-1 PO SCH (09:08)
[2019-10-10] MEDS: SUBUTEX SL SCH ×2 (09:08→20:28)
[2019-10-10] MEDS: TYLENOL PO PRN (15:47)
[2019-10-10] MEDS: ROBAXIN PO PRN (20:27)
[2019-10-10] MEDS: SEROQUEL PO PRN (20:28)
[2019-10-10] MEDS: MOTRIN PO PRN (20:28)
[2019-10-11] MEDS: PROTONIX PO SCH (06:19)
[2019-10-11] MEDS: THERA M PLUS PO SCH (08:49)
[2019-10-11] MEDS: VITAMIN B-1 PO SCH (08:49)
[2019-10-11] MEDS: FOLIC ACID PO SCH (08:49)
[2019-10-11] MEDS: SUBUTEX SL SCH ×2 (08:49→17:29)
--- NOTE | 2019-10-11 10:05 | PROGRESS NOTE ---
DATE: 10/11/2019 SUBJECTIVE: Patient notes that she is feeling a lot better. Still having some abdominal pain and nausea, but improved. PHYSICAL EXAMINATION: Vital Signs: Reviewed. Temperature 97 degrees, pulse 60s, respiratory rate 18, BP stable. General: Patient is pleasant. She is in no distress. HEENT: Normocephalic. Neck: Supple. Cardiovascular: Regular rate. Chest: Clear. Abdomen: Soft. Extremities: Moves all extremities. ASSESSMENT: 1. Nausea, vomiting. 2. Abdominal pain. 3. Myalgias. 4. Paresthesias. 5. Paroxysmal sweating. 6. Opiate abuse, withdrawal and stabilization. PLAN: We will continue patient in the hospital. Will continue Suboxone today. We will increase. If she tolerates, hopefully she can discharge home tomorrow. cc: Vinh Gonsales MD
[2019-10-11] MEDS: ROBAXIN PO PRN (15:56)
[2019-10-11 16:06] VITALS: BP 182/94
--- NOTE | 2019-10-12 04:02 | DISCHARGE SUMMARY ---
ADMISSION DATE: 10/07/2019 DISCHARGE DATE: 10/11/2019 DISCHARGE DIAGNOSIS: 1. Nausea, vomiting. 2. Abdominal pain. 3. Myalgias. 4. Paresthesias. 5. [*] 6. Opiate abuse, withdrawal and stabilization 7. Chronic anxiety and depression. 8. Chronic pain. CONSULTATIONS: None. PROCEDURES: None. BRIEF HOSPITAL COURSE: The patient was admitted to the hospital secondary to nausea, vomiting, abdominal pain, myalgias, paresthesias, paroxysmal sweating. Thankfully, she had an uneventful hospital course. She was started on Subutex secondary to her recently being on fentanyl and we certainly did not want to put her into further withdrawal from Naloxone. She require the dose to be increased to 8 mg twice daily. DISPOSITION: Patient will be discharged home on Subutex 8 mg b.i.d. for 30 days. Discussed with her that upon her return visit to the office that we will transition her over to Suboxone. TIME SPENT: Greater than 30 minutes was spent in planning and consultations. Discussed with patient that she needs to avoid all persons, places, and situations in which she has been using and abusing in the past. She needs outpatient life counseling as well as drug counseling. cc: Vinh Gonsales MD
== END 2019-10-11 14:55 | disposition home or self-care (01) | DRG 392 ==
LOC: P.MEDSURG 10-07 14:13
PROVIDERS: ADMIT Family Medicine; ATTEND Family Medicine